=== PATIENT | male | born 1940 | race Caucasian/White ===

== ENCOUNTER 2018-03-28 16:25 | Inpatient (IN) | payer MEDICARE, OTHER ==
[~2018-03-28] VITALS: Ht 185.4 cm; Wt 122.5 kg
[2018-03-28 18:45] LABS: BASOPHILS % 0.5 % (0.0-1.0); EOSINOPHILS # (AUTO) 0.1 (0.0-0.4); EOSINOPHILS % 1.2 % (0.0-6.0); HEMATOCRIT 45.7 % (38.2-49.6); HEMOGLOBIN 13.1 g/dL (14.0-18.0); LYMPHOCYTES # (AUTO) 0.8 (1.0-3.2); LYMPHOCYTES % 10.2 % (18.0-39.1); MEAN CORPUSCULAR HGB CONC 28.7 g/dL (31-35); MEAN CORPUSCULAR VOLUME 69.9 fL (81-99); MONOCYTES # (AUTO) 0.6 (0.2-0.8); MONOCYTES % 8.3 % (4.4-11.3); NEUTROPHILS # (AUTO) 5.9 (2.1-6.9); NEUTROPHILS % 79.5 % (38.7-80.0); PLATELET COUNT 197 x10e3/uL (140-360); RED BLOOD COUNT 6.54 x10e6/uL (4.3-5.7); RED CELL DISTRIBUTION WIDTH 21.2 % (11.7-14.4)
[2018-03-28 18:50] LABS: INR 1.28; PROTHROMBIN TIME 17.1 seconds (11.9-14.5)
[2018-03-28 18:51] LABS: PARTIAL THROMBOPLASTIN TIME 38.9 seconds (23.8-35.5)
[2018-03-28 19:01] LABS: ALANINE AMINOTRANSFERASE 18 IU/L (0-55); ALBUMIN 3.6 g/dL (3.5-5.0); ALBUMIN/GLOBULIN RATIO 1.1 (0.8-2.0); ALKALINE PHOSPHATASE 53 IU/L (40-150); ANION GAP 14.5 mmol/L (8-16); BLOOD UREA NITROGEN 11 mg/dL (7-26); BUN/CREATININE RATIO 9 (6-25); CALCIUM 9.2 mg/dL (8.4-10.2); CARBON DIOXIDE 24 mmol/L (22-29); CHLORIDE 99 mmol/L (98-107); CREATININE, SERUM 1.25 mg/dL (0.72-1.25); EST GLOMERULAR FILTRATION RATE 56 ML/MIN (60-); GLUCOSE 104 mg/dL (74-118); MAGNESIUM 1.7 MG/DL (1.3-2.1); PHOSPHORUS 2.8 MG/DL (2.3-4.7); POTASSIUM 3.5 mmol/L (3.5-5.1); SODIUM 134 mmol/L (136-145)
[2018-03-28 19:20] LABS: THYROID STIMULATING HORMONE 3.072 uIU/mL (0.350-4.940)
--- NOTE | 2018-03-28 20:16 | Diagnostic Imaging Report ---
EXAMINATION: CHEST SINGLE (PORTABLE) INDICATION: ^Palpitations ^[id number] ^1850 COMPARISON: None FINDINGS: AP view TUBES and LINES: None. LUNGS: Lungs are well inflated. Bilateral interstitial edema. Bibasilar atelectasis. PLEURA: No pleural effusion or pneumothorax. HEART AND MEDIASTINUM: Moderate enlargement of the cardiac silhouette. BONES AND SOFT TISSUES: Median sternotomy wires. Few inferior broken wire without displacement. Soft tissues are unremarkable. UPPER ABDOMEN: No free air under the diaphragm. IMPRESSION: Cardiomegaly with associated bilateral interstitial edema and bibasilar atelectasis. Signed by: Dr. Deanna Cedeno M.D. on 03/28/2018 8:12 PM
[2018-03-28] MEDS ORDERED: FUROSEMIDE INJ 10 MG/ML 4 ML VIAL IV ONE (20:30)
[2018-03-28] MEDS ORDERED: POTASSIUM CHLORIDE 20 MEQ TAB CR PO ONE (20:30)
--- NOTE | 2018-03-28 22:08 | Diagnostic Imaging Report ---
EXAMINATION: Head CT HISTORY: Dizziness, bradycardia, palpitations COMPARISON: None. TECHNIQUE: Multidetector axial images were obtained without contrast from the foramen magnum to the vertex . The images were reconstructed using brain and bone algorithms. Thin section brain images were reformatted into coronal and sagittal planes. Image quality: Motion/streaking artifact limits the evaluation of the skull base and posterior cranial fossa. Dose modulation, iterative reconstruction, and/or weight based adjustment of the mA/kV was utilized to reduce the radiation dose to as low as reasonably achievable. FINDINGS: Parenchyma: 1. Gutter and mildly confluent periventricular white matter hypodensities, most likely nonspecific chronic microvascular ischemic changes. Small age indeterminate, likely chronic lacunar infarcts in the left) views and bilateral frontal deep white matter. 2. No mass or hemorrhage. No CT evidence of acute territorial vascular insult. Extra-axial spaces:No abnormal density. No extra-axial fluid collections Brain volume: Normal for age. Ventricles: No hydrocephalus or displacement. Arteries: No density suggestive of thrombus. Dural sinuses: No abnormal density. Extra-axial spaces: No abnormal density. Foramen magnum: No mass, Chiari malformation, or basilar invagination. Sella: No obvious mass. Paranasal/mastoid sinuses: Imaged portions unremarkable. Skull/Scalp: No lytic or blastic lesions. No fractures. IMPRESSION: 1. No acute intracranial hemorrhage or cortical infarct. 2. Mild chronic microvascular ischemic changes. Signed by: Dr. Anju Cook M.D. on 03/28/2018 10:04 PM
--- OUTSIDE RECORDS SUMMARY | 2018-03-28 22:48 | XMS REPORT ---
Author Author [facility] Address Unknown Phone Unavailable Care Team Providers Care Inside Sales Assistant Name Role Phone Espinoza BALDERRAMA Unavailable Unavailable Problems This patient has no known problems. Allergies, Adverse Reactions, Alerts This patient has no known allergies or adverse reactions. Medications This patient has no known medications. Results Test Description Test Time Test Comments Text Results Atomic Results Result Comments CT BRAIN WO 2018-03-28 22:02:00 [place] [address] Patient Name: BIRD SHERMAN MR #: [id number] : 1940 Age/Sex: 78/M Req #: [id number] Adm Physician: Ordered by: MAYLIN BALDERRAMA MD Report #: [id number] Location: ER Room/Bed: Procedure: [id number] CT/CT BRAIN WO Exam Date: 03/28/18 Exam Time: 2039 REPORT STATUS: Signed EXAMINATION: Head CT HISTORY: Dizziness, bradycardia, pa lpitations COMPARISON: None. TECHNIQUE: Multidetector axial images were obtained without contrast from the foramen magnum to the vertex . The images were reconstructed using brain and bone algorithms. Thin section brain images were reformatted into coronal and sagittal planes. Image quality: Motion/streaking artifact limits the evaluation of the skull base and posterior cranial fossa. Dose modulation, iterative reconstruction, and/or weight based adjustment of the mA/kV was utilized to reduce the radiation dose to as low as reasonably achievable. FINDINGS: Parenchyma: 1. Gutter and mildly confluent periventricular white matter hypodensities, most likely nonspecific chronic microvascular ischemic changes. Small age indeterminate, likely chronic lacunar infarcts in the left) views and bilateral frontal deep white matter. 2. No mass or hemorrhage. No CT evidence of acute territorial vascular insult. Extra-axial spaces:No abnormal de nsity. No extra-axial fluid collections Brain volume: Normal for age. Ventricles: No hydrocephalus or displacement. Arteries: No density suggestive of thrombus. Dural sinuses: No abnormal density. Extra-axial spaces: No abnormal density. Foramen magnum: No mass, Chiari malformation, or basilar invagination. Sella: No obvious mass. Paranasal/mastoid sinuses: Imaged portions unremarkable. Skull/Scalp: No lytic or blastic lesions. No fractures. IMPRESSION: 1. No acute intracranial hemorrhage or cortical infarct. 2. Mild chronic microvascular ischemic changes. Signed by: Dr. Radha Cook M.D. on 03/28/2018 10:04 PM Dictated By: RADHA COOK MD 03 Transcribed By: OZ on 03/28/182203 COPY TO: MAYLIN BALDERRAMA MD CHEST SINGLE (PORTABLE) 2018-03-28 20:12:00 [place] [address] Patient Name: BIRD SHERMAN MR #: [id number] : 1940 Age/Sex: 78/M Req #: [id number] Adm Physician: Ordered by: MONICA LOMELI MD Report #: [id number] Location: ER Room/Bed: Procedure: [id number] DX/CHEST SINGLE (PORTABLE) Exam Date: 03/28/18 Exam Time: 1849 REPORT STATUS: Signed EXAMINATION: CHEST SINGLE (PORTABLE) I NDICATION: Palpitations [id number] COMPARISON: None FINDINGS: AP view TUBES and LINES: None. LUNGS: Lungs are well inflated. Bilateral interstitial edema. Bibasilar atelectasis. PLEURA: No pleural effusion or pneumothorax. HEART AND MEDIASTINUM: Moderate enlargement of the cardiac silhouette. BONES AND SOFT TISSUES: Median sternotomy wires. Few inferior broken wire without displacement. Soft tissues are unremarkable. UPPER ABDOMEN: No free air under the diaphragm. IMPRESSION: Cardiomegaly with associated bilateral interstitial edema and bibasilar atelectasis. Signed by: Dr. Sina Wisdom M.D. on 03/28/2018 8:12 PM Dictated By: SINA WISDOM MD 11 Transcribed By: OZ on 03/28/182011 COPY TO: MONICA LOMELI MD
[2018-03-28] MEDS ORDERED: COMBIVENT RESPIM4 GM INH (23:01)
[2018-03-28] MEDS ORDERED: IMODIUM2 MG PO (23:01)
[2018-03-28] MEDS ORDERED: PROAIR HFA INH8.5 GM IH (23:01)
[2018-03-28] MEDS ORDERED: XARELTO20 MG PO (23:01)
[2018-03-28] MEDS ORDERED: FUROSEMIDE40 MG PO (23:01)
[2018-03-28] MEDS ORDERED: CLOTRIMAZOLE-BE30 ML TP (23:01)
[2018-03-28] MEDS ORDERED: LANSOPRAZOLE30 MG PO (23:01)
[2018-03-29] VITALS (16 sets, daily range): BP systolic 100–129; BP diastolic 56–74
--- NOTE | 2018-03-29 | NUR ---
PT AWAKE ALERT SKIN W/D RESP NONLAB NAD NOTED. EXPLAINED NPO STATUS, VERBALIZED UNDERSTANDING.
--- NOTE | 2018-03-29 02:05 | NUR ---
PT AWAKE ALERT SKIN W/D RESP NONLAB. NAD NOTED. AMBULATED TO RESTROOM WITHOUT APPARENT DIFFICULTY. SECOND SET OF CE COLLECTED AND SENT TO LAB
[2018-03-29 02:41] LABS: CREATINE KINASE 41 IU/L (30-200)
[2018-03-29 05:17] LABS: BASOPHILS # (AUTO) 0.1 (0.0-0.1); BASOPHILS % 0.6 % (0.0-1.0); EOSINOPHILS # (AUTO) 0.1 (0.0-0.4); EOSINOPHILS % 0.9 % (0.0-6.0); HEMATOCRIT 46.8 % (38.2-49.6); HEMOGLOBIN 13.4 g/dL (14.0-18.0); LYMPHOCYTES % 11.6 % (18.0-39.1); MEAN CORPUSCULAR HGB CONC 28.6 g/dL (31-35); MEAN CORPUSCULAR VOLUME 69.9 fL (81-99); MONOCYTES # (AUTO) 0.6 (0.2-0.8); MONOCYTES % 7.2 % (4.4-11.3); NEUTROPHILS % 79.2 % (38.7-80.0); PLATELET COUNT 218 x10e3/uL (140-360); RED CELL DISTRIBUTION WIDTH 21.4 % (11.7-14.4)
[2018-03-29 05:47] LABS: ALBUMIN 3.6 g/dL (3.5-5.0); ALBUMIN/GLOBULIN RATIO 1.1 (0.8-2.0); ANION GAP 16.1 mmol/L (8-16); CALCIUM 9.4 mg/dL (8.4-10.2); CHOL/HDL RATIO 3.1 (3.9-4.7); CREATININE, SERUM 1.27 mg/dL (0.72-1.25); MAGNESIUM 1.8 MG/DL (1.3-2.1); POTASSIUM 4.1 mmol/L (3.5-5.1)
[2018-03-29 06:01] LABS: LYMPHOCYTES % (MANUAL) 9 % (19-48); MONOCYTES % (MANUAL) 13 % (3.4-9.0); NEUTROPHILS % (MANUAL) 78 % (40-74)
[2018-03-29 06:02] LABS: ANISOCYTOSIS S; HYPOCHROMASIA MODERATE; PLATELET ESTIMATE ADEQUATE; PLATELET MORPHOLOGY COMMENT NORMAL; POIKILOCYTOSIS S; RBC MORPHOLOGY COMMENT ABNORMAL
--- NOTE | 2018-03-29 07:11 | NUR ---
RECEIVED REPORT FROM GAYLA [employer] SPECIALISTPSYCHOLOGY CLINICIAN NURSE.
--- NOTE | 2018-03-29 07:41 | NUR ---
DR. FONTANA HERE TO [facility] PT. PT AWARE ROOM ASSIGNMENT STILL PENDING AT THIS TIME.
[2018-03-29] MEDS ORDERED: IPRATROPIUM/ALBUTEROL SULFATE 4 GM INH INH SCH (07:45)
[2018-03-29] MEDS ORDERED: ALBUTEROL SULFATE HFA 8GM INHALATION AEROSOL INH SCH (07:45)
--- NOTE | 2018-03-29 07:45 | NUR ---
PT SITTING UP ON SIDE OF BED IN CHAIR. DENIES DIZZINESS OR CHEST PAIN AT THIS TIME. PT AWARE TO REMAIN NPO FOR POSSIBLE PACEMAKER INSERTION.
--- NOTE | 2018-03-29 08:20 | NUR ---
EKG DONE ORDERED BY DR. FONTANA.
--- NOTE | 2018-03-29 08:26 | NUR ---
CALL PLACED TO DR. MOORE'S OFFICE TO NOTIFY ABOUT CONSULT. OFFICE PHONE JUST RANG, NO ANSWER. WILL CALL BACK AFTER 0900.
[2018-03-29] MEDS ORDERED: NON-FORMULARY MEDICATION (Lansoprazole 30 MG) PO SCH (09:00)
[2018-03-29] MEDS: RIVAROXABAN 20 MG TABLET PO SCH (09:00)
[2018-03-29] MEDS: FUROSEMIDE 40 MG TAB PO SCH (09:00)
--- NOTE | 2018-03-29 09:25 | NUR ---
CALL PLACED TO DR. MCFADDEN'S OFFICE REGARDING PT'S CONCERN ABOUT NOT BEING ON SCHELDULE FOR POSSIBLE PACEMAKER INSERTION. PENDING RETURN CALL AT THIS TIME.
--- NOTE | 2018-03-29 09:30 | NUR ---
CALL PLACED TO DR. MOORE'S OFFICE. SPOKE TO ARSH TO INFORM OF CONSULT. PENDING RETURN CALL AT THIS TIME.
[2018-03-29] MEDS ORDERED: HEPARIN SOD/SOD CHLORIDE 2,000 ML ONE (09:37)
[2018-03-29] MEDS ORDERED: IOPAMIDOL 370 MG/ML 200 ML INFUS..BTL INJ ONE (09:38)
[2018-03-29] MEDS ORDERED: LIDOCAINE HCL 2% LOCAL 20 ML VIAL ONE ×3 (09:38→15:26)
--- NOTE | 2018-03-29 09:49 | NUR ---
JERICA FROM [facility] HERE TO TRANSPORT PT FOR ANGIOGRAM. REPORT GIVEN TO BASIA PIZANO. PT TO GO TO A ROOM AFTERWARDS AND IS AWARE OF THIS.
--- NOTE | 2018-03-29 10:00 | NUR ---
DR. MOORE HERE TO [facility].
[2018-03-29] MEDS ORDERED: SODIUM CHLORIDE 0.9% 1000ML 1,000 ML ONE ×2 (10:11→14:50)
[2018-03-29] MEDS ORDERED: MIDAZOLAM HCL 2 MG/2 ML VIAL ONE ×2 (10:11→14:49)
[2018-03-29] MEDS ORDERED: FENTANYL CITRATE/PF 100MCG/2 ML INJ ONE ×2 (10:11→14:49)
[2018-03-29 10:13] LABS: CREATINE KINASE 41 IU/L (30-200)
--- NOTE | 2018-03-29 10:42 | Consultation ---
DATE OF CONSULTATION: CARDIOLOGY CONSULTATION REASON FOR CONSULTATION: Abnormal stress test, chest pain, symptomatic bradycardia. 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 Patient was found to have heart rates in the 30s with symptoms of lightheadedness, dizziness and fatigue. A stress test was performed due to shortness of breath and chest discomfort, which showed inferior ischemia. He is currently feeling well at rest. Denies any ongoing chest pain, shortness of breath; however, still reports palpitations. REVIEW OF SYSTEMS: A 12-point review of systems was conducted, is negative otherwise as above in the HPI. PAST MEDICAL HISTORY: As stated above in the HPI. PAST SURGICAL HISTORY: Coronary artery bypass graft surgery, mitral valve replacement. PAST FAMILY HISTORY: No premature coronary artery disease or sudden cardiac . SOCIAL HISTORY: No current illicit drug use, alcohol use, tobacco use. ALLERGIES: PENICILLIN. MEDICATIONS: See medication reconciliation form. PHYSICAL EXAMINATION VITAL SIGNS: Temperature is 98.2, heart rate is 68, respirations are 18, blood pressure is 114/52, oxygen saturation is 96% on 3 liters nasal cannula. GENERALLY: He is an elderly man seated at bedside, comfortable, with no apparent distress. Alert and oriented x3. HEAD: Normocephalic, atraumatic. EYES: The extraocular muscles are intact. Conjunctiva is clear. NECK: No JVD, no bruits. CARDIOVASCULAR: He is regular rate and rhythm with ectopy, mild systolic murmur heard best at the left upper sternal border. LUNGS: Diminished breath sounds in bilateral bases. ABDOMEN: Soft, nontender, nondistended. EXTREMITIES: No edema. VASCULAR: Diminished pulses. SKIN: Warm, dry, intact. Echocardiogram from March 23, 2018, showed a left ventricular ejection fraction of 55% to 60% with a normal functioning bioprosthetic valve in the mitral position. Nuclear stress test showed mild inferior ischemia with a calculated left ventricular ejection fraction of 38%. Laboratory reviewed. Hemoglobin 13.4. Creatinine 1.27. Normal troponins. BNP is 168. Chest x-ray shows cardiomegaly with mild interstitial edema. CT of the head shows no acute intracranial hemorrhage or cortical infarct, mild microvascular ischemic changes. IMPRESSION 1. Coronary artery disease status post coronary artery bypass graft surgery. 2. Abnormal stress test showing inferior ischemia. 3. Symptomatic bradycardia. 4. Premature ventricular complexes. 5. Lightheadedness and dizziness. 6. Hypertension. 7. Hyperlipidemia. RECOMMENDATIONS: Patient presented with symptomatic bradycardia with premature ventricular complexes and had a stress test showing inferior ischemia. Will proceed with left heart catheterization today to evaluate his grafts and [place] coronary arteries with possible intervention. Continue all other current cardiovascular medications. Patient likely will require pacemaker implantation due to symptomatic bradycardia. Will consult Dr. Peterson with electrophysiology. Further recommendations to follow. Job#: [id number] EV
--- NOTE | 2018-03-29 12:53 | History and Physical ---
CHIEF COMPLAINT: Dizziness, low heart beat, shortness of breath, weakness. HPI: This is a 78-year-old male with a past medical history of atrial fibrillation with slow ventricular response, hypertension, GERD, COPD, hyperlipidemia. He was in his usual state of health until the patient was seen by [facility] taper last week who tried to put the patient as outpatient pacemaker and cardiac cath, but the patient developed some shortness of breath and dizziness. He came to the ER last night. Afebrile. No shortness of breath. No chest pain. No backache. No burning urination. No diarrhea. No constipation. No seizures. No focal weakness. No leg pain. No leg swelling. PAST MEDICAL HISTORY 1. Hypertension. 2. Hyperlipidemia. 3. Valvular heart disease. 4. Atrial fibrillation. PAST SURGICAL HISTORY 1. History of mitral valve repair. 2. Hernia surgery. 3. History of node in neck removed. ALLERGIES: PENICILLIN. HABITS: Denies smoking. Denies alcohol. Denies illicit drug use. SOCIAL HISTORY: The patient is and lives with his . MEDICATION LIST: Attached. REVIEW OF SYSTEMS GENERAL: Swelling and weakness. HEENT: No diplopia. No blurring of vision. CARDIOPULMONARY: No chest pain. No shortness of breath. No cough. ALIMENTARY SYSTEM: No nausea or vomiting. MUSCULOSKELETAL: Has some joint pain. CENTRAL NERVOUS SYSTEM: No focal weakness. PHYSICAL EXAMINATION GENERAL: This is a 78-year-old male who is alert and oriented times 3, in no gross distress. VITAL SIGNS: Temperature 98.2, pulse 48, respiratory rate 18, blood pressure 126/59. HEENT: Head is atraumatic and normocephalic. Pupils bilaterally equally reactive to light. The extraocular muscles intact. Tongue is dry. Conjunctivae and sclerae are normal. NECK: Supple. No JVD. No carotid bruit. SKIN: Dry. LUNGS: Clear to auscultation bilaterally. No added sound. HEART: S1 and S2, regular rate and rhythm. No S3, S4 or murmur. ABDOMEN: Soft. Nontender. No guarding. No rigidity. EXTREMITIES: No pedal edema. No clubbing. No cyanosis. OPERATIONS SUPERVISOR 2ND SHIFT: Grossly nonfocal. CT OF THE HEAD: No new stroke. CHEST X-RAY: Cardiomegaly with associated bilateral interstitial edema. LABS: White count 7.43, hemoglobin 13.1, hematocrit 45.7, platelets 197. Sodium 134, potassium 3.5, BUN and creatinine normal at 1.25, albumin 3.6. BNP 160. ASSESSMENT 1. Weakness and dizziness from bradycardia, rule out coronary artery disease. 2. Atrial fibrillation. 3. Hypertension. 4. Chronic obstructive pulmonary disease. 5. History of mitral valve replacement. PLAN: Refer patient for cardiology consult with Dr. Rodriguez. BMP in the morning. Continue to monitor in the hospital. Lasix 20 daily. Case discussed with the patient. Told condition and prognosis. Job#: [id number]
[2018-03-29] MEDS ORDERED: BACITRACIN 50,000 UNIT VIAL ONE (14:50)
[2018-03-29] MEDS ORDERED: SODIUM CHLORIDE 0.9% 500ML 500 ML ONE (14:50)
[2018-03-29] MEDS ORDERED: VANCOMYCIN 1GM/NS 250 ML 250 ML ONE (15:26)
--- NOTE | 2018-03-29 16:45 | NUR ---
RECD PT FROM TOBY MAKER VIA BED AAOX3,SLING TO LT ARM DRESG TO LT U CHEST CD&I,IV INFUSING TO LT AC PATENT IVF INFUSING,DENIES PAIN .
--- NOTE | 2018-03-29 16:55 | NUR ---
TELE APPLIED SR DEMAND PACE,AT 68
--- NOTE | 2018-03-29 16:55 | NUR ---
O2 2LNC APPLIED O2 SATS 89 % RA
--- NOTE | 2018-03-29 19:06 | NUR ---
Patient visited in room during nursing rounds. Patient alert and oriented x3. Ambulatory with standby assist prn. Patient s/p left heart cath and permanent pacemaker placement via left upper chest. Dressing on left upper chest clean, dry and intact. Right groin dressing clean and dry. Sling being worn on left arm. at bedside. Patient denies any discomfort or pain. Will monitor patient closely.
[2018-03-30] VITALS: BP 119/58
[2018-03-30 04:00] VITALS: BP 122/56
[2018-03-30 06:04] LABS: ANION GAP 13.2 mmol/L (8-16); BLOOD UREA NITROGEN 15 mg/dL (7-26); BUN/CREATININE RATIO 14 (6-25); CARBON DIOXIDE 23 mmol/L (22-29); CHLORIDE 100 mmol/L (98-107); EST GLOMERULAR FILTRATION RATE > 60 ML/MIN (60-); GLUCOSE 86 mg/dL (74-118); POTASSIUM 4.2 mmol/L (3.5-5.1); SODIUM 132 mmol/L (136-145)
[2018-03-30] MEDS ORDERED: PANTOPRAZOLE SOD 40 MG TABEC PO SCH ×2 (07:30)
[2018-03-30 08:42] VITALS: BP 122/56
[2018-03-30] MEDS: RIVAROXABAN 20 MG TABLET PO SCH (08:42)
[2018-03-30] MEDS: FUROSEMIDE 40 MG TAB PO SCH (08:42)
--- NOTE | 2018-03-30 08:42 | NUR ---
Pt received resting in bed. S/p PPM insertion and [facility] Pt with left arm sling. Oriented to staff and surroundings. Encouraged to press call boo if help needed. Pt oriented to staff and surroundings. Advised to press call boo if help needed. Meds given as ordered. [place]rem[place]ne boo within reach. Will monitor
[2018-03-30 09:00] VITALS: BP 126/57
[2018-03-30 11:54] VITALS: BP 115/55
--- NOTE | 2018-03-30 13:20 | NUR ---
Pt & given discharge instructions regarding meds, diet, activities, and follow up appointment with PCP and cardiology. Both verbalized understanding of teaching. Left floor in wheelchair to 's car
--- NOTE | 2018-03-30 15:50 | Operative Report ---
DATE OF PROCEDURE: March 29, 2018 PROCEDURES PERFORMED 1. Selective coronary angiography x2. 2. Left heart catheterization. 3. Left graft angiography. PREPROCEDURE DIAGNOSIS: Abnormal stress test with a history of coronary artery disease status post coronary artery bypass graft surgery. ESTIMATED BLOOD LOSS: Less than 20 mL. SPECIMENS REMOVED: None. PROCEDURE DETAILS: After informed consent was obtained, the patient was brought to the cardiac catheterization laboratory in a fasting and nonsedated state. Bilateral groins were prepped and draped in the usual sterile fashion. Lidocaine 2% was infiltrated over the right anterior groin for local anesthesia. Using a micropuncture needle, the right common femoral artery was accessed using modified Seldinger technique, and a 5-Slovak sheath was placed. Next, diagnostic coronary angiography was performed using a JL-4 and a JR-4 catheter. This same catheter was used to selectively engage the vein graft, and diagnostic imaging was performed. Next, this also was used to selectively engage the left internal mammary artery. Next, left heart catheterization was performed using a modified angled pigtail catheter. Hemostasis was achieved via a Mynx device. The patient tolerated the procedure well with no immediate complications and was transported back to his room in stable condition. PROCEDURAL FINDINGS 1. Left main coronary artery is patent without significant coronary artery disease. 2. The left anterior descending coronary artery has a mild proximal to mid 30% stenosis. 3. The left circumflex coronary artery provides 2 obtuse marginal vessels, the first of which has a long tubular proximal 50% stenosis. 4. The right coronary artery is a large dominant vessel and provides the posterior descending coronary artery. There is mild nonobstructive coronary artery disease present in this coronary system. 5. There is a patent saphenous vein graft anastomosed to the 1st obtuse marginal vessel, which is patent. 6. The left internal mammary artery is not anastomosed to any coronary artery and is in its tolowa dee-ni' position. 7. The left ventricular end-diastolic pressure is 13 mmHg with no aortic valve gradient present upon pullback. RECOMMENDATIONS: Continue medical management. Job#: [id number] EV
--- NOTE | 2018-04-01 12:09 | Consultation ---
DATE OF CONSULTATION: March 29, 2018 REFERRING PHYSICIAN: Dr. Rodriguez. REASON FOR CONSULT: Symptomatic bradycardia. HISTORY OF PRESENT ILLNESS: This is a 78-year-old gentleman with history of hypertension, history of PVCs, who has been having dizziness and weakness, he has had an event monitor, demonstrated frequent episodes of bradycardia; however, dropping to the 40s. He also had frequent PVCs that worsened with bradycardia despite holding the beta blockers. He was advised to present to the ER and is evaluated for a pacemaker. REVIEW OF SYSTEMS CONSTITUTIONAL: As per HPI, otherwise negative. CARDIOVASCULAR: As per HPI. RESPIRATORY: Negative. GASTROINTESTINAL: Negative. GENITOURINARY: Negative. MUSCULOSKELETAL: Negative. EYES: Negative. ENT: Negative. ALLERGY/IMMUNOLOGY: Negative. PSYCHIATRY: Negative. PAST MEDICAL HISTORY: Hypertension. PAST SURGICAL HISTORY: Negative. FAMILY HISTORY: No premature coronary artery disease. SOCIAL HISTORY: Denies smoking or alcohol. PHYSICAL EXAMINATION VITAL SIGNS: Blood pressure 120/60, pulse 60, respirations 20, and O2 sat is 98%. GENERAL: In no acute distress. HEENT: Moist mucous membranes. CARDIOVASCULAR: Regular. RESPIRATORY: Clear. ABDOMEN: Soft, nontender. MUSCULOSKELETAL: 2+ distal pulses. NEUROLOGICAL: No focal deficit. SKIN: No lesions. PSYCHIATRY: Normal thought process. EKG: Sinus bradycardia, frequent PVCs. IMPRESSION 1. Symptomatic bradycardia with sinus node dysfunction, dizziness, and weakness. 2. Frequent monomorphic premature ventricular contractions. RECOMMENDATIONS: I had a discussion with the patient. He has indication for pacing. Procedure was explained in detail, benefits and risks. Patient voiced understanding and wishes to proceed. Plan for a dural-chamber pacemaker placement. Patient may need ablation of his PVCs if they continue to be refractory in the near future. Thank you for letting us participate in Mr. Morin's [facility] care. Job#: [id number] ANDREW
--- NOTE | 2018-04-01 13:44 | Operative Report ---
DATE OF PROCEDURE: March 29, 2018 PREPROCEDURE DIAGNOSES 1. Symptomatic bradycardia. 2. Sinus node dysfunction. 3. Dizziness. POSTPROCEDURE DIAGNOSES 1. Symptomatic bradycardia. 2. Sinus node dysfunction. 3. Dizziness. ESTIMATED BLOOD LOSS: 5 mL. COMPLICATIONS: None. PROCEDURES PERFORMED 1. Dual-chamber pacemaker placement. 2. Moderate sedation. Moderate conscious sedation was provided under my direct supervision by a sedation-trained nurse. Sedation approximate time 30 minutes, Versed and fentanyl. There were no complications. See sedation form for details. DESCRIPTION OF PROCEDURE: After informed consent was obtained, the patient was brought to the electrophysiology laboratory in a fasting, nonsedated state. Area over his chest was prepped and draped in the usual sterile fashion. Moderate sedation and prophylactic antibiotic were given. Lidocaine 1% was used as local anesthetic and a 3-cm skin incision was made in the left subclavicular area. Electrocautery, sharp and blunt dissection were used to reach the muscular fascia and a pocket was created for eventual implantation of the device. Vascular access was obtained x2 in the left axillary vein. Using the modified Seldinger technique under fluoroscopic guidance, two 6-[place] sheaths were placed in the ventricular lead and advanced to the RV apex. R-wave 18, pacing 0.4 at 0.5, impedance 800. The atrial lead to the right atrial appendage. P-wave 4, pacing 0.6 at 0.5, impedance 700. Sheaths were removed from the body. Leads were secured to fascia using 0 silk. Pocket was irrigated with antibiotic solution using the pulse cellar worker. Hemostasis was meticulous. Leads were connected to the device and entire pacemaker system placed in the pocket. Incision was closed using Vicryl and Dermabond. The patient tolerated the procedure well. The procedure was deemed complete. SUMMARY OF HARDWARE IMPLANTED 1. The new pacemaker is [employer] model #L311, [id number]. 2. The atrial lead is [employer] 7741, [id number]. 3. The ventricular lead is [employer] 7742, [id number]. IMPRESSION: Successful dual-chamber pacemaker implant via left axillary vein. PLAN 1. Routine postop monitoring on telemetry bed. 2. Chest x-ray. 3. Follow up in 2 weeks. Job#: [id number] PEPE
== END 2018-03-30 13:16 | disposition home or self-care (01) | DRG 243 ==
LOC: ER 16:25 → ERHOLD 22:45 → MED/SURG3 03-29 16:41
PROVIDERS: ADMIT Internal Medicine; ATTEND Internal Medicine
PROC: 0JH606Z Insertion of Pacemaker, Dual Chamber into Chest Subcutaneous Tissue and Fascia, Open Approach (ICD-10-PCS; principal; 2018-03-28)
PROC: 02H63JZ Insertion of Pacemaker Lead into Right Atrium, Percutaneous Approach (ICD-10-PCS; 2018-03-28)
PROC: 02HK3JZ Insertion of Pacemaker Lead into Right Ventricle, Percutaneous Approach (ICD-10-PCS; 2018-03-28)
PROC: 4A023N7 Measurement of Cardiac Sampling and Pressure, Left Heart, Percutaneous Approach (ICD-10-PCS; 2018-03-30)
PROC: B2111ZZ Fluoroscopy of Multiple Coronary Arteries using Low Osmolar Contrast (ICD-10-PCS; 2018-03-30)
PROC: B2131ZZ Fluoroscopy of Multiple Coronary Artery Bypass Grafts using Low Osmolar Contrast (ICD-10-PCS; 2018-03-30)
PROC: B2181ZZ Fluoroscopy of Left Internal Mammary Bypass Graft using Low Osmolar Contrast (ICD-10-PCS; 2018-03-30)
DX: I49.5 Sick sinus syndrome (principal); I25.810 Atherosclerosis of coronary artery bypass graft(s) without angina pectoris; I38 Endocarditis, valve unspecified; I48.2 Chronic atrial fibrillation; Z79.01 Long term (current) use of anticoagulants; I49.1 Atrial premature depolarization; I44.0 Atrioventricular block, first degree; I49.40 Unspecified premature depolarization; Z95.1 Presence of aortocoronary bypass graft; E78.5 Hyperlipidemia, unspecified; K21.9 Gastro-esophageal reflux disease without esophagitis; I10 Essential (primary) hypertension; I51.7 Cardiomegaly; I11.0 Hypertensive heart disease with heart failure; I50.9 Heart failure, unspecified
CPT/HCPCS: 33208; 36415; 70450; 71045; 80048; 80053; 80061; 82550; 82553; 83735; 83880; 84100; 84443; 84484; 85025; 85610; 85730; 93005; 93459; 99284; C1769; C1785; C1898; J1940; J2001; J2250; J3370; J7030; J7040; Q9967

== ENCOUNTER 2018-05-19 00:56 | Inpatient (IN) | payer MEDICARE, OTHER ==
[~2018-05-19] VITALS: Ht 185.4 cm; Wt 117.9 kg
[~2018-05-19 00:56] MED LIST: CLOTRIMAZOLE-BE30 ML TOP; COMBIVENT RESPIM4 GM INH; FUROSEMIDE40 MG PO; IMODIUM2 MG PO; LANSOPRAZOLE30 MG PO; PROAIR HFA INH8.5 GM INH; XARELTO20 MG PO
--- OUTSIDE RECORDS SUMMARY | 2018-05-19 00:59 | XMS REPORT | Summary of Care ---
Author Author [facility] Organization [facility] Address Unknown Phone Unavailable Encounter HQ Encntr_alias(FIN) [id number] Date(s): 10/01/17 - 10/01/17 [facility] [address] [place] [address]- Discharge Disposition: Home or Self Care Attending Physician: Corbin Thomas MD Referring Physician: Corbin Thomas MD Vital Signs No data available for this section Problem List No data available for this section Allergies, Adverse Reactions, Alerts No data available for this section Medications No data available for this section Results No data available for this section Immunizations No data available for this section Procedures No data available for this section Social History No data available for this section Assessment and Plan No data available for this section
--- OUTSIDE RECORDS SUMMARY | 2018-05-19 00:59 | XMS REPORT | Continuity of Care Document ---
Author Author [facility] Interface Address Unknown Phone Unavailable Problems Problem Status Onset Date Classification Date Reported Comments Source DX: J98.4=OTHER DISORDERS OF LUNG Active 04/19/2018 [facility] FIRST NIGHT 23670 Active 11/24/2017 [facility] C34.31 Active 09/22/2017 [facility] Bigeminy Active Problem 03/30/2018 [facility] CHF Active Problem 03/30/2018 [facility] MALIGNANT NEOPLASM OF LOWER LOBE, RIGHT Active [facility] OBSTRUCTIVE SLEEP APNEA (ADULT) (PEDIATR Active [facility] OTHER DISORDERS OF LUNG Active [facility] Medications Medication Details Route Status Patient Instructions Ordering Provider Order Date Source Albuterol Sulfate (Proair Hfa Inhaler*) 8.5 Gm Inh Use As Directed Active [facility] Clotrimazole/Betamethasone Dip (Clotrimazole-Betamethasone Lot) 30 Ml Lotion Active [facility] Furosemide 40 Mg Tablet Daily Active [facility] Ipratropium/Albuterol Sulfate (Combivent Respimat Inhal Melrose) 4 Gm Aer.w.adap Use As Directed [facility] Lansoprazole 30 Mg Capsule.dr Daily Active [facility] Loperamide Hcl (Imodium*) 2 Mg Cap As Needed Active [facility] Rivaroxaban (Xarelto) 20 Mg Tablet Daily Active [facility] Allergies, Adverse Reactions, Alerts Substance Category Reaction Severity Reaction type Status Date Reported Comments Source Penicillin HIVES Unknown Allergy to Substance Active 03/28/2018 [facility] Immunizations Immunization Date Given Site Status Last Updated Comments Source Results Order Name Results Value Reference Range Date Interpretation Comments Source Chest wo contrast CT Chest wo contrast CT EXAM: CT chest without IV contrast INDICATION: Follow-up spot on lung, lung nodule COMPARISON: 10/01/2017 PET/CT Technique: Axial CT images through the chest were obtained without IV contrast. Coronal and sagittal reformats were obtained. CT imaging performed at this location utilizes radiation dose optimization techniques which include one or more of the following: -Automated exposure control -Adjustment of the mA and/or kV according to patient size -Use of iterative reconstruction technique CT Radiation Dose DLP 556 mGy-cm FINDINGS: 1.3 cm right perifissural pulmonary opacity was not confidently identified on prior study and likely represents focal nodular atelectasis. No other pulmonary nodules identified. Multiple calcified pleural base nodules are present in the left posterior hemithorax. There is also noncalcified pleural nodularity in the lateral right hemithorax. No consolidation, pneumothorax, or pleural effusion identified. No endobronchial abnormalities evident. Centrilobular and emphysematous changes predominate in the lung apices. No threshold enlarged hilar, mediastinal, or axillary lymph nodes identified. No cardiomegaly or pericardial effusion. Main pulmonary artery and thoracic aorta are normal in caliber. Atherosclerotic calcifications course along the coronary arteries. Gallstones lie posteriorly within the gallbladder. Visualized upper abdominal organs reveal no acute abnormalities otherwise. No suspicious lytic or blastic osseous lesions are evident. IMPRESSION: Right perifissural nodule is new compared to prior study and likely represents nodular atelectasis. No new or enlarging pulmonary nodule identified. Multiple calcified pleural base nodules, most likely representing asbestos related lung disease. Moderate centrilobular and paraseptal emphysema predominating in the lung apices. Cholelithiasis. SL: [id number] 04/25/2018 - - Read by: Syd Esteves MD Dictated Date/time: 04/25/18 22:09 Electronically Signed by: Syd Esteves MD 04/25/18 22:17 FINAL REPORT [facility] Serum or plasma sodium measurement (moles/volume) 132 136 - 145 03/30/2018 [facility] Serum or plasma potassium measurement (moles/volume) 4.2 3.5 - 5.1 03/30/2018 [facility] Serum or plasma chloride measurement (moles/volume) 100 98 - 107 03/30/2018 [facility] Serum or plasma carbon dioxide, total measurement (moles/volume) 23 22 - 29 03/30/2018 [facility] Serum or plasma anion gap 13.2 8 - 16 03/30/2018 [facility] Serum or plasma urea nitrogen measurement (mass/volume) 15 7 - 26 03/30/2018 [facility] Serum or plasma creatinine measurement (mass/volume) 1.10 0.72 - 1.25 03/30/2018 [facility] Serum or plasma urea nitrogen/creatinine mass ratio 14 6 - 25 03/30/2018 [facility] Estimated glomerular filtration rate (GFR) determination > 60 60 03/30/2018 [facility] Glucose measurement 86 74 - 118 03/30/2018 [facility] Serum or plasma calcium measurement (mass/volume) 9.0 8.4 - 10.2 03/30/2018 [facility] Serum or plasma creatine kinase measurement (enzymatic activity/volume) 41 30 - 200 03/29/2018 [facility] Serum or plasma creatine kinase MB measurement (mass/volume) 1.30 0 - 5.0 03/29/2018 [facility] Troponin I measurement by highly sensitive enzyme immunoassay < 0.001 0 - 0.300 03/29/2018 [facility] Blood leukocytes automated count (number/volume) 8.83 4.8 - 10.8 03/29/2018 [facility] Blood erythrocytes automated count (number/volume) 6.70 4.3 - 5.7 03/29/2018 [facility] Blood hemoglobin measurement (moles/volume) 13.4 14.0 - 18.0 03/29/2018 [facility] Automated blood hematocrit (volume fraction) 46.8 38.2 - 49.6 03/29/2018 [facility] Automated erythrocyte mean corpuscular volume 69.9 81 - 99 03/29/2018 [facility] Automated erythrocyte mean corpuscular hemoglobin (mass per erythrocyte) 20.0 28 - 32 03/29/2018 [facility] Automated erythrocyte mean corpuscular hemoglobin concentration measurement (mass/volume) 28.6 31 - 35 03/29/2018 [facility] RDW BldCo-Rto 21.4 11.7 - 14.4 03/29/2018 [facility] Automated blood platelet count (count/volume) 218 140 - 360 03/29/2018 [facility] Automated blood segmented neutrophil count as percentage of total leukocytes 79.2 38.7 - 80.0 03/29/2018 [facility] Automated blood lymphocyte count as percentage ot total leukocytes 11.6 18.0 - 39.1 03/29/2018 [facility] Automated blood monocyte count as percentage of total leukocytes 7.2 4.4 - 11.3 03/29/2018 [facility] Automated blood eosinophil count as percentage of total leukocytes 0.9 0.0 - 6.0 03/29/2018 [facility] Automated blood basophil count as percentage of total leukocytes 0.6 0.0 - 1.0 03/29/2018 [facility] IM GRANULOCYTES % 0.5 0.0 - 1.0 03/29/2018 [facility] Automated blood neutrophil count 7.0 2.1 - 6.9 03/29/2018 [facility] Blood lymphocytes count (number/volume) 1.0 1.0 - 3.2 03/29/2018 [facility] Blood monocytes automated count (number/volume) 0.6 0.2 - 0.8 03/29/2018 [facility] Automated blood eosinophil count 0.1 0.0 - 0.4 03/29/2018 [facility] Automated blood basophil count (count/volume) 0.1 0.0 - 0.1 03/29/2018 [facility] Absolute Immature Granulocyte (auto 0.04 0 - 0.1 03/29/2018 [facility] Differential Total Cells Counted 100 03/29/2018 [facility] Manual blood neutrophils/100 leukocytes 78 40 - 74 03/29/2018 [facility] Manual blood lymphocytes/100 leukocytes 9 19 - 48 03/29/2018 [facility] Manual blood monocytes/100 leukocytes 13 3.4 - 9.0 03/29/2018 [facility] Blood platelets count by estimate (number/volume) ADEQUATE 03/29/2018 [facility] Platelet morphology NORMAL 03/29/2018 [facility] Blood hypochromia detection by light microscopy MODERATE 03/29/2018 [facility] Blood poikilocytosis detection by light microscopy S 03/29/2018 [facility] Blood anisocytosis detection by light microscopy S 03/29/2018 [facility] RBC morphology ABNORMAL 03/29/2018 [facility] Serum or plasma magnesium measurement (mass/volume) 1.8 1.3 - 2.1 03/29/2018 [facility] Serum or plasma total bilirubin measurement (mass/volume) 1.0 0.2 - 1.2 03/29/2018 [facility] Aspartate Amino Transf (AST/SGOT) 17 5 - 34 03/29/2018 [facility] Serum or plasma alanine aminotransferase measurement (enzymatic activity/volume) 19 0 - 55 03/29/2018 [facility] Serum or plasma protein measurement (mass/volume) 7.0 6.5 - 8.1 03/29/2018 [facility] Serum or plasma albumin measurement (mass/volume) 3.6 3.5 - 5.0 03/29/2018 [facility] Plasma globulin measurement (mass/volume) 3.4 2.3 - 3.5 03/29/2018 [facility] Serum or plasma albumin/globulin mass ratio 1.1 0.8 - 2.0 03/29/2018 [facility] Serum or plasma alkaline phosphatase measurement (enzymatic activity/volume) 55 40 - 150 03/29/2018 [facility] Serum or plasma triglyceride measurement (mass/volume) 122 0 - 149 03/29/2018 [facility] Serum or plasma cholesterol measurement (mass/volume) 123 0 - 199 03/29/2018 [facility] Serum or plasma cholesterol in LDL measurement (mass/volume) 59 60 - 130 03/29/2018 [facility] Serum or plasma cholesterol in HDL measurement (mass/volume) 40 40 - 60 03/29/2018 [facility] Serum or plasma total cholesterol/cholesterol in HDL mass ratio 3.1 3.9 - 4.7 03/29/2018 [facility] Prothrombin time (PT) in platelet poor plasma by coagulation assay 17.1 11.9 - 14.5 03/28/2018 [facility] INR in Platelet poor plasma by Coagulation assay 1.28 03/28/2018 [facility] Activated partial thromboplastin time (aPTT) in platelet poor plasma bycoagulation assay 38.9 23.8 - 35.5 03/28/2018 [facility] Phosphorus measurement 2.8 2.3 - 4.7 03/28/2018 [facility] BNP Bld-mCnc 168.0 0 - 100 03/28/2018 [facility] Serum or plasma thyrotropin measurement by detection limit <=0.005 miu/l (units/volume) 3.072 0.350 - 4.940 03/28/2018 [facility] PET CT Lung non-small cell diagnosis PET CT Lung non-small cell diagnosis PET CT Lung non-small cell diagnosis TECHNIQUE: 14.8 mCis of FDG were administered intravenously and a series of overlapping images were obtained from the skull base to the proximal thighs utilizing a PET/CT hybrid device. The CT was utilized for attenuation correction and anatomic correlation and not as an independent diagnostic study. BLOOD GLUCOSE: 95 mg/dl COMPARISON: Report from outside education dated 07/12/2017 is referenced. No images are available for direct comparison. CLINICAL HISTORY: C34.31 Malignant neoplasm of lower lobe, right bronchus or lung - KOL=773.01mGy*cm; CTDIVol=6.12 mGy; FINDINGS: HEAD AND NECK: No abnormal activity is visualized CHEST: Moderate to severe emphysema. Focal area of mild pleural-based nodularity is noted in the right middle lobe laterally. Maximum SUV is 1.8 on image 115. No discrete nodule is visualized in the left lower lobe. There is mild basilar atelectasis. Moderate cardiomegaly. Coronary artery calcifications. ABDOMEN AND PELVIS: Ventral abdominal hernia containing a small bowel loop in the right mid to lower abdomen near midline. This bowel loop is markedly dilated with a prominent air-fluid level and maximum caliber of 8 cm. Physiologic activity is visualized in the solid organs, genitourinary tract and gastrointestinal tract. MUSCULOSKELETAL: Midline sternotomy changes with mild increase in metabolic activity noted throughout the length of the sternum. Small nonspecific focus of mild increase in metabolic activity, left third rib anteriorly. IMPRESSION: Right paramedian ventral abdominal hernia with herniation of a small bowel loop. The intraperitoneal portion of this bowel loop is markedly dilated with a prominent air-fluid level. Possibility of incarceration should be excluded. Correlation with clinical symptoms and GI consultation is recommended. NOTE: Critical and/or salient findings telephoned to the referring physician, Dr. Thomas on 10/03/2017 11:39 AM CDT. Mild focal pleural-based nodularity in the right middle lobe region without significant increase in metabolic activity. No discrete nodule is visible in the left lower lobe on the current study. Repeat CT chest is recommended in 3 months. Small nonspecific focus of mild increase in metabolic activity, left third rib. Correlation with clinical exam and further evaluation may be obtained with bone scan as indicated. SL:[id number] 10/01/2017 - - Read by: Tye Smith MD Dictated Date/time: 10/03/17 11:03 Electronically Signed by: Tye Smith MD 10/03/17 11:45 FINAL REPORT [facility] Vital Signs Vital Sign Value Date Comments Source Encounters Location Location Details Encounter Type Encounter Number Reason For Visit Attending Provider ADM Date DC Date Status Source [facility] [id number] Corbin Thomas 10/01/2017 10/02/2017 [facility] Discharged Inpatient [id number] KEVIN FONTANA MD 03/28/2018 03/30/2018 [facility] Procedures Procedure Code Date Perfomer Comments Source Computed tomography of brain without radiopaque contrast [id number] 03/28/2018 [facility]
[2018-05-19] MEDS ORDERED: ONDANSETRON HCL INJ 2MG/ML 2ML 2 MG/ML VIAL IV STA (02:10)
[2018-05-19] MEDS ORDERED: DIATRIZOATE MEGL/DIATRIZOA SOD 30 ML BTL PO ONE (02:14)
--- NOTE | 2018-05-19 02:24 | Diagnostic Imaging Report ---
ABDOMEN 2 VIEW Clinical history: Abdominal pain Technique: AP view abdomen Comparison: None Findings: Severely limited by body habitus and motion artifact, for example on upright view limiting assessment for free air. Portions of the lateral abdomen excluded. Markedly distended loop of large bowel with air-fluid level. Multiple additional air-fluid levels. Clips overlie the pelvis. Partially imaged pacing leads and approximately L2 compression deformity. Impression: Abnormal bowel gas pattern. Findings suspicious for sigmoid volvulus. Recommend CT. Signed by: Dr Patti Mccullough MD on 05/19/2018 2:21 AM
[2018-05-19] MEDS ORDERED: HYDROMORPHONE 2MG/ML 2 MG/ML ML IV ONE (02:30)
[2018-05-19 02:35] LABS: BASOPHILS % 0.3 % (0.0-1.0); EOSINOPHILS % 0.2 % (0.0-6.0); HEMOGLOBIN 13.6 g/dL (14.0-18.0); LYMPHOCYTES # (AUTO) 0.5 (1.0-3.2); LYMPHOCYTES % 4.5 % (18.0-39.1); MEAN CORPUSCULAR HEMOGLOBIN 19.7 pg (28-32); MEAN CORPUSCULAR HGB CONC 30.2 g/dL (31-35); MEAN CORPUSCULAR VOLUME 65.1 fL (81-99); MONOCYTES # (AUTO) 0.6 (0.2-0.8); MONOCYTES % 5.9 % (4.4-11.3); NEUTROPHILS # (AUTO) 9.1 (2.1-6.9); NEUTROPHILS % 88.5 % (38.7-80.0); PLATELET COUNT 258 x10e3/uL (140-360); RED BLOOD COUNT 6.91 x10e6/uL (4.3-5.7); RED CELL DISTRIBUTION WIDTH 21.7 % (11.7-14.4)
[2018-05-19 02:49] LABS: ALBUMIN 3.8 g/dL (3.5-5.0); ALBUMIN/GLOBULIN RATIO 1.3 (0.8-2.0); AMYLASE 15 U/L (25-125); CALCIUM 9.4 mg/dL (8.4-10.2); CREATININE, SERUM 1.3 mg/dL (0.72-1.25); LIPASE 11 U/L (8-78)
[2018-05-19] MEDS ORDERED: SODIUM CHLORIDE 0.9% 50ML 50 ML ONE (02:53)
[2018-05-19] MEDS ORDERED: IOPAMIDOL 370 MG/ML 200 ML INFUS..BTL INJ ONE (02:53)
[2018-05-19] MEDS ORDERED: METHOCARBAMOL750 MG PO (03:58)
[2018-05-19] MEDS ORDERED: NAPROXEN375 MG PO (03:58)
[2018-05-19] MEDS ORDERED: CARVEDILOL3.125 MG PO (03:58)
[2018-05-19] MEDS ORDERED: PANTOPRAZOLE SO40 MG PO (03:59)
[2018-05-19] MEDS ORDERED: BENZOCAINE/TETRACAINE/BUTAMBEN AERO SPRAY 56 GM CAN TOP ONE (04:15)
--- NOTE | 2018-05-19 04:15 | NUR ---
16 FR NGT INSERTED TO R NARE PER ORDERS. PLACEMENT VERIFIED BY AUSCULTATION. CONNECTED TO LWS PER ORDERS. 800CC LIGHT BROWNISH COLRED LIQUID NOTED IN SUCTION CANISTER. INFORMED.
--- NOTE | 2018-05-19 04:18 | Diagnostic Imaging Report ---
EXAM: CT ABDOMEN/PELVIS W DATE: 05/19/2018 2:09 AM INDICATION: Abdominal pain COMPARISON: None TECHNIQUE: The abdomen and pelvis were scanned using a multidetector helical scanner. Coronal and sagittal reformations were obtained. CT low dose techniques were utilized, as applicable. IV Contrast: 100 ml Isovue 300/370 FINDINGS: LOWER THORAX: Bibasilar atelectasis. Scattered pleural calcifications/plaques.. Partially imaged pacing leads, coronary and aortic calcifications. LIVER/BILIARY: Several subcentimeter too small to characterize liver hypodensities.. No ductal dilatation. GALLBLADDER: Cholelithiasis. SPLEEN: Unremarkable PANCREAS: Unremarkable ADRENALS: Nodular bilateral adrenal glands KIDNEYS: Left renal cyst and several too small to characterize renal hypodensities. No hydronephrosis. GI TRACT: Small hiatal hernia with reflux of oral contrast. Postsurgical changes status post prior bowel resection with ileal anastomosis in the right lower quadrant. Distended stomach and small bowel loops with transition point at the site of an antimesenteric bowel wall (Perdomo's type) and fat containing right ventral/periumbilical hernia. The afferent loop is massively dilated up to 12.6 cm. Mild associated mesenteric edema. No pneumatosis. Diverticula of small bowel and colon. VESSELS: Moderate atherosclerotic changes PERITONEUM/RETROPERITONEUM: Multiple clips are noted. No free air. LYMPH NODES: No lymphadenopathy REPRODUCTIVE ORGANS/BLADDER: Unremarkable BONES: Mild L2 compression deformity. IMPRESSION: Small bowel obstruction with transition at a Perdomo's type bowel containing right ventral hernia. The afferent loop is massively dilated (12-13 cm) suggesting this may be acute on chronic. Signed by: Dr Patti Mccullough MD on 05/19/2018 4:14 AM
[2018-05-19] MEDS: SODIUM CHLORIDE 0.9% 1000ML 1,000 ML IV SCH ×3 (05:54→18:20)
[2018-05-19] MEDS: METRONIDAZOLE 500MG/NS 100ML 100 ML IV SCH ×4 (06:00→23:39)
[2018-05-19] MEDS ORDERED: ONDANSETRON HCL INJ 2MG/ML 2ML 2 MG/ML VIAL IV PRN (06:00)
[2018-05-19] MEDS: LEVOFLOXACIN 500MG/D5W 100ML IV SCH (06:28)
[2018-05-19 07:30] VITALS: BP 95/52
--- NOTE | 2018-05-19 07:33 | NUR ---
RECEIVED PATIENT TO UNIT AT 0640. PATIENT NGT CONNECTED TO WALL SUCTION. NPO. DENIES PAIN. SITTING IN RECLINER. NC. UPDATED ON PLAN OF CARE. REPORT GIVEN TO ONCOMING NURSE. PROVIDED PATIENT WITH GLYCERIN SWABS.
[2018-05-19 09:21] LABS: INR 0.99
[2018-05-19 09:22] LABS: PARTIAL THROMBOPLASTIN TIME 34.3 seconds (23.8-35.5)
--- NOTE | 2018-05-19 10:19 | Diagnostic Imaging Report ---
Examination: Single AP view of the chest. COMPARISON: None. INDICATION: Preoperative evaluation, bowel obstruction DISCUSSION: Lines/tubes: Enteric tube with the distal portion not visualized due to soft tissue attenuation/underpenetration. Sternotomy wires. Cardiac pacemaker. Lungs: Lower lung atelectasis. No focal pneumonia or edema. Pleura: No pleural effusion or pneumothorax. Heart and mediastinum: The heart and the mediastinum are unremarkable. Bones and soft tissues: No acute bony abnormalities. IMPRESSION: 1. No acute cardiopulmonary abnormalities. Signed by: Dr. Andrew Edwards M.D. on 05/19/2018 10:15 AM
--- NOTE | 2018-05-19 10:25 | History and Physical ---
CHIEF COMPLAINT: Constipation since last 4 to 5 days. HISTORY OF PRESENT ILLNESS: This 78-year-old, pleasant, white male with past medical history of multiple medical problems was admitted at [facility] last evening with the above complaints. As per the patient, since the last 4 to 5 days, the patient is unable to move bowels. Hence, the patient came to the ER last night. The patient had a CAT scan and x-ray. KUB done showed a small-bowel obstruction with ventral hernia. Hence, the patient was admitted for further care and treatment. At present, the patient is sitting comfortably in a chair in no apparent distress. No chest pain. No shortness of breath. No nausea or vomiting. No diarrhea. No abdominal pain. No loss of consciousness. No palpitations. No headaches. No hematemesis or melena. No hematuria or dysuria. No fever. No cough. No witnessed seizures. PAST MEDICAL HISTORY 1. Atrial fibrillation. 2. Status post mitral valve replacement with bioprosthetic valve in 2015. 3. Pacemaker placement 1 month back status post heart block. 4. COPD. 5. Hyperlipidemia. SURGICAL HISTORY 1. Mitral valve replacement, bioprosthetic valve, 2015. 2. Pacemaker placement, 04/06/2018. 3. Partial gastric removal surgery in 1998 for mass found to be benign. ALLERGIES: PENICILLIN. MEDICATIONS: As listed in the chart. SOCIAL HISTORY: No smoking. No alcohol. No illicit drug use. , lives with family. REVIEW OF SYSTEMS: As per HPI. PHYSICAL EXAMINATION GENERAL: The patient is alert, awake, oriented x3, in no apparent distress, sitting in chair. No cyanosis. No icterus. No pallor. VITALS: Temperature is 97. Pulse is 70 per minute. Respiratory rate is 18 per minute. Blood pressure is 114/70. Saturation is 95%. HEENT: Normocephalic, atraumatic. PERRLA. NECK: Soft, supple. No JVD, no carotid bruit, no lymphadenopathy. LUNGS: Air entry bilaterally equal. HEART: No murmur. No gallop. ABDOMEN: Soft. Distended. Ventral hernia plus. [employer] FOOD MANAGER: Alert and oriented x3. No focal deficit. EXTREMITIES: No cyanosis. No clubbing. No edema. Peripheral pulses present. No calf pain. LABS: Sodium 127, potassium 4.0, chloride 90, bicarb 26, BUN 16, creatinine 1.3, and glucose 128. LFTs noted. White count 10, hemoglobin 13.6, hematocrit 45, platelets 258. CAT scan of abdomen and pelvis shows a small-bowel obstruction with transition at Perdomo's type bowel containing a right ventral hernia. The afferent loop is massively dilated 12 to 13 cm suggesting this may be acute on chronic. ASSESSMENT 1. Small-bowel obstruction with ventral hernia. 2. History of atrial fibrillation, hypertension, dyslipidemia, status post pacemaker placement, chronic obstructive pulmonary disease. PLAN: Admit the patient to the medical floor. NPO. IV fluids. Surgical consultation with Dr. Abhay Estrada. Cardiology consultation with Dr. Rodriguez. Will get chest x-ray and EKG. Further care and treatment as per the clinical course of the patient in the hospital. Discussed with patient and family in detail. The prognosis and condition are guarded. Job#: [id number]
[2018-05-19 10:34] VITALS: BP 95/52
[2018-05-19] MEDS: SODIUM CHLORIDE 0.9% 250ML IRRIG IR SCH ×4 (11:15→21:15)
--- NOTE | 2018-05-19 11:15 | NUR ---
PLACEMENT VERIFIED WITH AIR, IRRIGATED NGT PER MD ORDER, PT CONTINUES TO SIT IN BS CHAIR, DENIES PAIN, CALL LIGHT WITHIN REACH
[2018-05-19 12:23] VITALS: BP 115/56
--- NOTE | 2018-05-19 14:16 | Consultation ---
DATE OF CONSULTATION: May 19, 2018 CARDIOLOGY CONSULTATION REASON FOR CONSULTATION: Preop evaluation. This is a 78-year-old man with a history of coronary artery disease, status post CABG, mitral valve disease, status post bioprosthetic mitral valve replacement, symptomatic bradycardia, status post permanent pacemaker, hypertension, hyperlipidemia, and COPD, who presented to the hospital with complaints of constipation. Patient denies any chest pain, shortness of breath, palpitations, edema, orthopnea, or PND. He denies any lightheadedness. Due to his constipation, he came to the ER and KUB demonstrated a small-bowel obstruction. He was subsequently admitted for further care and treatment. Cardiology is consulted for preop evaluation for possible surgery. REVIEW OF SYSTEMS: Negative except as per HPI. PAST MEDICAL HISTORY: Coronary artery disease, status post CABG, mitral valve disease, status post bioprosthetic mitral valve replacement, symptomatic bradycardia, status post permanent pacemaker, hypertension, hyperlipidemia, COPD. PAST SURGICAL HISTORY: CABG, mitral valve replacement, permanent pacemaker. ALLERGIES: PENICILLIN. MEDICATIONS: Please see medication list. SOCIAL HISTORY: No tobacco, alcohol or illicit drugs. FAMILY HISTORY: Noncontributory to current illness. PHYSICAL EXAMINATION VITALS: Temperature 96.7 degrees, pulse 58, respiratory rate 18, blood pressure 95/52, and oxygen saturation 97% on 2 L nasal cannula. GENERAL: Elderly man in no acute distress. Awake, alert, well-developed, well-nourished. HEENT: Normocephalic and atraumatic. Pupils equal. No scleral icterus. NECK: Supple. No thyromegaly or cervical lymphadenopathy. No carotid bruits. LUNGS: Clear to auscultation bilaterally. No wheezes or crackles. CARDIOVASCULAR: Normal rate. Regular rhythm. No murmur. Normal S1 and S2. ABDOMEN: Soft and nontender. EXTREMITIES: One plus pitting edema bilaterally. NEURO: Nonfocal exam. LABS: WBC 10.33, hemoglobin 13.6, hematocrit 45, and platelets 258,000. Sodium 127, potassium 4, chloride 92, CO2 26, BUN 16, creatinine 1.3. Chest x-ray with no acute cardiopulmonary abnormalities. CT of the abdomen and pelvis with small-bowel obstruction with transition at a Perdomo's type bowel containing right ventral hernia. The afferent loop is massively dilated suggesting this may be [id number]. Telemetry is normal sinus rhythm. IMPRESSION 1. Small-bowel obstruction. 2. Coronary artery disease: Status post coronary artery bypass graft. 3. Symptomatic bradycardia: Status post permanent pacemaker. 4. Mitral valve disease: Status post bioprosthetic mitral valve replacement. 5. Hypertension. 6. Hyperlipidemia. 7. Chronic obstructive pulmonary disease. RECOMMENDATIONS: Patient had cardiac catheterization performed March of 2018 prior to his pacemaker placement. He had patent SVG to OM with mild nonobstructive CAD. Echocardiogram performed at the office in March 2018 demonstrated normal LV size and function with a normally functioning prosthetic mitral valve. Continue home cardiac medications. Monitor the patient on telemetry. He may proceed to surgery without further cardiac evaluation. Resume Xarelto once hemostasis is achieved or if no surgery is planned. Thank you for this consult. We will continue to follow. Job#: [id number] MARIXA
--- NOTE | 2018-05-19 14:30 | NUR ---
WITH STANDBY ASSIST AND USE OF CANE, PT AMBULATED TO BR, ATTEMPTED BM, NO SUCCESS, STANDBY ASSIST TO BS CHAIR, CALL LIGHT WITHIN REACH
[2018-05-19 16:42] VITALS: BP 108/58
--- NOTE | 2018-05-19 18:21 | NUR ---
MD Cyndy MARES AND Christine MARES INTO SEE PT, DISCUSSED POC, AWARE OF PT PASSING FLATUS BUT NO BM AT THIS TIME, NO NEW ORDERS, STANDBY ASSIST BACK TO CHAIR, CALL LIGHT WITHIN REACH
--- NOTE | 2018-05-19 18:47 | NUR ---
PT HAD SOFT BM
--- NOTE | 2018-05-19 19:00 | NUR ---
RECEIVED REPORT FROM DAY NURSE. PATIENT IS RESTING COMFORTABLY IN CHAIR. PATIENT HAS NASOGASTRIC TUBE HOOKED UP TO LOW SUCTION. NASOGASTRIC TUBE IS PATENT. CALL MINAYA IS WITHIN REACH. WILL CONTINUE TO MONITOR PATIENT.
[2018-05-19 20:00] VITALS: BP 129/54
--- NOTE | 2018-05-19 20:15 | NUR ---
PATIENT JUST HAD A BOWEL MOVEMENT. BOWEL MOVEMENT IS SOFT AND BROWN. WILL CONTINUE TO MONITOR PATIENT FOR BOWEL MOVEMENTS.
--- NOTE | 2018-05-19 23:00 | NUR ---
PATIENT HAS HAD A SECOND BOWEL MOVEMENT. BOWEL MOVEMENT IS SEMI FORMED. WILL CONTINUE TO MONITOR PATIENT FOR BOWEL MOVEMENTS.
[2018-05-20] VITALS (8 sets, daily range): BP systolic 109–160; BP diastolic 53–70
[2018-05-20] MEDS: SODIUM CHLORIDE 0.9% 250ML IRRIG IR SCH ×6 (01:15→21:20)
[2018-05-20] MEDS: SODIUM CHLORIDE 0.9% 1000ML 1,000 ML IV SCH ×2 (01:54→10:07)
[2018-05-20] MEDS: METRONIDAZOLE 500MG/NS 100ML 100 ML IV SCH ×3 (05:33→18:51)
[2018-05-20 05:53] LABS: BASOPHILS % 0.6 % (0.0-1.0); EOSINOPHILS # (AUTO) 0.1 (0.0-0.4); EOSINOPHILS % 1.9 % (0.0-6.0); HEMATOCRIT 39.9 % (38.2-49.6); HEMOGLOBIN 12.3 g/dL (14.0-18.0); LYMPHOCYTES # (AUTO) 0.5 (1.0-3.2); LYMPHOCYTES % 8.8 % (18.0-39.1); MEAN CORPUSCULAR HEMOGLOBIN 20.4 pg (28-32); MEAN CORPUSCULAR HGB CONC 30.8 g/dL (31-35); MEAN CORPUSCULAR VOLUME 66.1 fL (81-99); MONOCYTES # (AUTO) 0.6 (0.2-0.8); MONOCYTES % 10.5 % (4.4-11.3); NEUTROPHILS # (AUTO) 4.2 (2.1-6.9); NEUTROPHILS % 77.6 % (38.7-80.0); PLATELET COUNT 184 x10e3/uL (140-360); RED BLOOD COUNT 6.04 x10e6/uL (4.3-5.7); RED CELL DISTRIBUTION WIDTH 21.4 % (11.7-14.4)
[2018-05-20 06:22] LABS: ALANINE AMINOTRANSFERASE 12 IU/L (0-55); ALBUMIN 3.3 g/dL (3.5-5.0); ALBUMIN/GLOBULIN RATIO 1.3 (0.8-2.0); ALKALINE PHOSPHATASE 55 IU/L (40-150); ANION GAP 12.8 mmol/L (8-16); BLOOD UREA NITROGEN 15 mg/dL (7-26); BUN/CREATININE RATIO 14 (6-25); CALCIUM 8.7 mg/dL (8.4-10.2); CARBON DIOXIDE 23 mmol/L (22-29); CHLORIDE 98 mmol/L (98-107); CREATININE, SERUM 1.06 mg/dL (0.72-1.25); EST GLOMERULAR FILTRATION RATE > 60 ML/MIN (60-); GLUCOSE 75 mg/dL (74-118); POTASSIUM 3.8 mmol/L (3.5-5.1); SODIUM 130 mmol/L (136-145)
[2018-05-20] MEDS: LEVOFLOXACIN 500MG/D5W 100ML IV SCH (06:41)
--- NOTE | 2018-05-20 07:00 | NUR ---
report given to day nurse. patient is resting comfortably on chair by bed. call boo is within reach.
--- NOTE | 2018-05-20 10:46 | NUR ---
MD Christine MARES INTO SEE PT, DISCUSSED POC
--- NOTE | 2018-05-20 11:30 | NUR ---
NGT UNCLAMPED PER MD ORDER
--- NOTE | 2018-05-20 11:50 | NUR ---
PT AMBULATING IN HALLWAY WITH USE OF WALKER, AT SIDE
--- NOTE | 2018-05-20 11:51 | NUR ---
MD HUDOSN INTO SEE PT, DISCUSSED POC, TOLD PT HE CAN HAVE A FEW ICE CHIPS
[2018-05-20] MEDS ORDERED: ALBUTEROL SULFATE HFA 8GM INHALATION AEROSOL INH PRN (12:15)
[2018-05-20] MEDS: DEXTROSE 5%/LACTATED RINGERS 1,000 ML IV SCH ×3 (12:15→22:15)
--- NOTE | 2018-05-20 15:00 | NUR ---
SITTING IN BS CHAIR, CALL LIGHT WITHIN REACH
--- NOTE | 2018-05-20 15:17 | Progress Note ---
DATE: May 20, 2018 CARDIOLOGY PROGRESS NOTE SUBJECTIVE: No major events overnight. Had some bowel movements. Currently, no plans for surgery; however, being monitored for improvement of his small-bowel obstruction. No chest pain. No shortness of breath. OBJECTIVE VITAL SIGNS: Temperature 97.2, pulse 62, respiratory rate 20, blood pressure 118/55, satting 99% on nasal cannula. GENERAL: Obese man, in no acute distress. CARDIOVASCULAR: Regular rate and rhythm. No murmurs, rubs, or gallops. LUNGS: Clear to auscultation bilaterally. ABDOMEN: Obese, soft, mildly tender and distended. NEURO AND PSYCH: Alert and oriented to person, place and time. Normal affect. INPATIENT MEDICATIONS: Reviewed. LABORATORY DATA: Reviewed. IMAGING DATA: Reviewed. TELEMETRY DATA: Reviewed. ASSESSMENT 1. Small bowel obstruction. 2. Coronary artery disease, status post coronary artery bypass grafting in the past. 3. Symptomatic bradycardia, status post permanent pacemaker in the past. 4. Mitral valve disease, status post bioprosthetic mitral valve. 5. Hypertension. 6. Hyperlipidemia. 7. Chronic obstructive pulmonary disease. RECOMMENDATIONS: Continue home CV medications. Hold anticoagulation until patient is ready to be discharged. Thank you for this consult. We will continue to follow. Job#: [id number] ANDREW
[2018-05-20] MEDS ORDERED: FAMOTIDINE 20 MG/2 ML VIAL IV SCH (17:00)
[2018-05-20] MEDS: ENOXAPARIN SOD INJ 40 MG/0.4 ML SYR SC SCH (18:00)
--- NOTE | 2018-05-20 18:15 | NUR ---
PT REPORTS PASSING FLATUS, NO BM, PT AMBULATING IN HALLWAY, STEADY GAIT, AT SIDE
--- NOTE | 2018-05-20 19:31 | NUR ---
WALKING ROUNDS PERFORMED, RECEIVED PT SITTING ON SIDE OF BED. PT IS AAOX3, RR EVEN AND NON-LABORED ON RA. NGT TO (R) NARE CLAMPED AT THIS TIME. LEFT PT SITTING ON SIDE OF BED. BED IN LOW LOCKED POSITION, SIDE RAILS UPX2. FAMILY AT BEDSIDE.
--- NOTE | 2018-05-20 20:40 | NUR ---
PAGED PLACED FOR MD ZARAGOZA CONCERNING PT REPORTS OF LOWER POSTERIOR BACK PAIN. WAITING FOR CALLBACK.
--- NOTE | 2018-05-20 20:45 | NUR ---
SPOKE WITH MD HUDSON CONCERNING PT REPORTS OF PAIN. NEW ORDERS RECEIVED.
[2018-05-20] MEDS: LIDOCAINE 5% PATCH TP SCH (21:20)
[2018-05-20] MEDS: FAMOTIDINE 20 MG/2 ML VIAL IV SCH (21:20)
--- NOTE | 2018-05-20 21:20 | NUR ---
PT REFUSES TO SLEEP IN BED, PT REPORTS IT HURTS HIS LOWER BACK TOO MUCH. PT PREFERS TO SLEEP IN RECLINER. PT WEARING NON SKID SOCKS AND REPORTS HE WILL CALL WHEN HE NEEDS TO GET UP.
--- NOTE | 2018-05-20 21:20 | NUR ---
FLUSHED NGT AND RECONNECTED TO [facility].
[2018-05-21] VITALS (8 sets, daily range): BP systolic 115–139; BP diastolic 56–65
[2018-05-21] MEDS: SODIUM CHLORIDE 0.9% 250ML IRRIG IR SCH ×7 (00:45→23:46)
[2018-05-21] MEDS: METRONIDAZOLE 500MG/NS 100ML 100 ML IV SCH ×5 (00:45→23:46)
--- NOTE | 2018-05-21 01:50 | NUR ---
DISCONNECTED PT FROM SUCTION AND CLAMPED NGT AT THIS TIME.
--- NOTE | 2018-05-21 01:59 | NUR ---
PT REPORTS 10/10 TO LOWER POSTERIOR BACK. PT REPORTS LIDOCAINE PATCH WORKED FOR A LITTLE WHILE BUT NOW HIS BACK IS HURTING TOO MUCH FOR HIM TO SLEEP.
--- NOTE | 2018-05-21 02:05 | NUR ---
PAGE PLACED FOR MD ZARAGOZA CONCERNING PT REPORTS OF UNCONTROLLED PAIN. WAITING FOR CALLBACK.
[2018-05-21 02:41] LABS: CLARITY,URINE CLEAR (CLEAR); COLOR,URINE YELLOW (YELLOW); LEUKOCYTE ESTERASE ,URINE NEGATIVE (NEGATIVE); NITRITE,URINE NEGATIVE (NEGATIVE)
[2018-05-21 02:42] LABS: BACTERIA,URINE RARE /HPF; BILIRUBIN,URINE NEGATIVE (NEGATIVE); EPITHELIAL CELLS,URINE RARE /LPF; KETONES,URINE 1+ (NEGATIVE); PROTEIN,URINE DIPSTICK TRACE (NEGATIVE); URINE UROBILINOGEN 0.2 mg/dL (0.2 - 1); WBC,URINE (MAN) 0-5 /HPF (0-5)
[2018-05-21] MEDS: LEVOFLOXACIN 500MG/D5W 100ML IV SCH (05:08)
--- NOTE | 2018-05-21 06:20 | NUR ---
IV TO (R) AC NOTED TO BE LEAKING. IVF STOPPED. IV DISCONTINUED. CATHETER TIP INTACT. PRESSURE AND DRESSING APPLIED. NEW IV STARTED TO (L) FA 20G. BLOOD RETURN NOTED, FLUSHES WITHOUT DIFFICULTY.
[2018-05-21 07:15] LABS: BASOPHILS % 0.9 % (0.0-1.0); EOSINOPHILS # (AUTO) 0.1 (0.0-0.4); HEMATOCRIT 39.3 % (38.2-49.6); HEMOGLOBIN 12.1 g/dL (14.0-18.0); LYMPHOCYTES # (AUTO) 0.4 (1.0-3.2); LYMPHOCYTES % 9.4 % (18.0-39.1); MEAN CORPUSCULAR HEMOGLOBIN 20.5 pg (28-32); MEAN CORPUSCULAR HGB CONC 30.8 g/dL (31-35); MEAN CORPUSCULAR VOLUME 66.6 fL (81-99); MONOCYTES # (AUTO) 0.5 (0.2-0.8); MONOCYTES % 11.6 % (4.4-11.3); NEUTROPHILS # (AUTO) 3.4 (2.1-6.9); NEUTROPHILS % 75.2 % (38.7-80.0); PLATELET COUNT 189 x10e3/uL (140-360); RED CELL DISTRIBUTION WIDTH 21.4 % (11.7-14.4)
[2018-05-21 07:33] LABS: ALANINE AMINOTRANSFERASE 12 IU/L (0-55); ALBUMIN 3.3 g/dL (3.5-5.0); ALBUMIN/GLOBULIN RATIO 1.3 (0.8-2.0); ALKALINE PHOSPHATASE 50 IU/L (40-150); ANION GAP 12.6 mmol/L (8-16); BLOOD UREA NITROGEN 11 mg/dL (7-26); BUN/CREATININE RATIO 10 (6-25); CALCIUM 8.7 mg/dL (8.4-10.2); CARBON DIOXIDE 24 mmol/L (22-29); CHLORIDE 101 mmol/L (98-107); CREATININE, SERUM 1.07 mg/dL (0.72-1.25); EST GLOMERULAR FILTRATION RATE > 60 ML/MIN (60-); GLUCOSE 70 mg/dL (74-118); MAGNESIUM 1.8 MG/DL (1.3-2.1); POTASSIUM 3.6 mmol/L (3.5-5.1); SODIUM 134 mmol/L (136-145)
[2018-05-21 07:53] LABS: THYROID STIMULATING HORMONE 3.119 uIU/mL (0.350-4.940)
--- NOTE | 2018-05-21 08:14 | Diagnostic Imaging Report ---
EXAM: ABDOMEN 2 VIEW DATE: 05/21/2018 5:00 AM INDICATION: Small bowel obstruction COMPARISON: 05/19/2018 CT, no report available FINDINGS: Side holes of NG tube below GE junction. Gas-filled loops of bowel present. Trace amount of pneumoperitoneum under the right hemidiaphragm. Nonspecific air-fluid levels central lower abdomen which appear differential consistent with known small bowel obstruction. Degenerative changes hips. IMPRESSION: Persistent gas-filled loops of bowel with air-fluid levels lower abdomen and probable pneumoperitoneum. CT could be obtained for further evaluation. Case discussed with patients nurse Canela at 0805 on date of dictation. Signed by: Dr. Agusto Rojas MD on 05/21/2018 8:10 AM
[2018-05-21] MEDS ORDERED: DIATRIZOATE MEGL/DIATRIZOA SOD 30 ML BTL PO ONE (08:37)
[2018-05-21] MEDS: FAMOTIDINE 20 MG/2 ML VIAL IV SCH ×2 (08:42→20:35)
[2018-05-21] MEDS ORDERED: MORPHINE SULFATE INJ 4 MG/ML INJ 1ML ONE (08:51)
[2018-05-21] MEDS ORDERED: MORPHINE SULFATE INJ 4 MG/ML INJ 1ML IV ONE (09:15)
[2018-05-21] MEDS: DEXTROSE 5%/LACTATED RINGERS 1,000 ML IV SCH ×2 (09:59→18:15)
--- NOTE | 2018-05-21 10:01 | NUR ---
PT WHEELED OFF UNIT VIA WC FOR CT OF ABD, NO CHANGE IN CONDITION
--- NOTE | 2018-05-21 10:38 | Diagnostic Imaging Report ---
EXAM: CT Abdomen and Pelvis WITH contrast INDICATION: SBO COMPARISON: same day radiographs, CT 2.1.19 (no report) TECHNIQUE: Abdomen and Pelvis was scanned utilizing a multidetector helical scanner after administration of IV contrast. Coronal and sagittal reformations were obtained. IV CONTRAST: 100 ml Isovue 370 COMPLICATIONS: None RADIATION DOSE: Total DLP:828 mGy*cm Estimated effective dose: (DLP x 0.015 x size factor) mSv CTDIvol has been reviewed. It is below the limits set by the Radiation Protocol Committee (RPC). Appropriate CT dose reduction techniques were utilized. FINDINGS: Abdomen: Lung Bases: Atelectasis and emphysema. Advanced coronary artery vascular calcifications. 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 Solid Organs: Calcified gallstones. Nodularity of the adrenal glands. Renal hypodensities statistically cyst. Partial fatty replacement of pancreas. Upper GI Tract: Gastric catheter decompresses stomach. Dilated small bowel proximal to ventral wall hernia measuring at least 9 cm. Small bowel distally decompressed. Vascularity: Aortic vascular calcifications with no aneurysm. Lymph Nodes: No suspicious adenopathy. Other: Ventral wall hernia with loop of small bowel as above. Pelvis: Bladder: Unremarkable. Other: None. Colon: Moderate diverticulosis predominantly sigmoid colon. Contrast is present in the colon. Bones: Degenerative changes. Height loss L2. IMPRESSION: 1. Persistent small bowel obstructive changes with lead point at ventral wall hernia with loop of interposed small bowel. Loops of small bowel just proximal to hernia measure at least 9 cm. Air-fluid levels present. No pneumatosis, portal venous gas, or pneumoperitoneum identified. 2. Contrast present in the colon, presumably from study on 05/19/2018. Findings suggest that small bowel obstruction is incomplete. 3. Cholelithiasis. 4. Diverticulosis. 5. Other findings as above. Signed by: Dr. Agusto Rojas MD on 05/21/2018 10:35 AM
[2018-05-21] MEDS ORDERED: MORPHINE SULFATE INJ 4 MG/ML INJ 1ML IV PRN (12:00)
--- NOTE | 2018-05-21 14:43 | NUR ---
MD HUDSON INTO SEE PT, MADE AWARE OF PT JUST REPORTING CHRONIC GROIN RASH, ORDERS NOTED
[2018-05-21] MEDS ORDERED: NYSTATIN 15 GM POWDER UD BTL TOP PRN (14:45)
--- NOTE | 2018-05-21 14:57 | NUR ---
AMBULATING IN HALLWAY, STEADY GAIT
--- NOTE | 2018-05-21 14:59 | Diagnostic Imaging Report ---
EXAM: ABDOMEN-1VIEW (KUB) DATE: 05/21/2018 2:00 PM INDICATION: Small bowel obstruction COMPARISON: Same day radiographs and CT as well as 05/19/[address] FINDINGS: Severe underpenetration and body habitus makes exam essentially nondiagnostic. IMPRESSION: Nondiagnostic. Signed by: Dr. Agusto Rojas MD on 05/21/2018 2:55 PM
[2018-05-21] MEDS: ENOXAPARIN SOD INJ 40 MG/0.4 ML SYR SC SCH (16:59)
[2018-05-21] MEDS ORDERED: IOPAMIDOL 370 MG/ML 200 ML INFUS..BTL INJ ONE (18:41)
[2018-05-21] MEDS ORDERED: SODIUM CHLORIDE 0.9% 50ML 50 ML ONE (18:41)
--- NOTE | 2018-05-21 18:42 | NUR ---
SITTING IN BS CHAIR, EYES CLOSED, RR EVEN AND NONLABORED, CALL LIGHT WITHIN REACH
[2018-05-21] MEDS: LIDOCAINE 5% PATCH TP SCH (20:35)
--- NOTE | 2018-05-21 20:41 | NUR ---
BARIATRIC CHAIR ARRIVED AND PROVIDED FOR PT. PT REPORTS FEELING RELIEF. PT REPORTS HEADACHE AT THIS TIME, PT DOES NOT WANT TO TAKE MORPHINE FOR HEADACHE. PAGE PLACED FOR MD ZARAGOZA FOR PAIN MANAGEMENT.
--- NOTE | 2018-05-21 20:57 | NUR ---
SPOKE WITH MD HUDSON CONCERNING PT REPORTS OF HEADACHE. NO NEW ORDERS RECEIVED.
[2018-05-22] VITALS (9 sets, daily range): BP systolic 110–125; BP diastolic 51–67
[2018-05-22] MEDS: DEXTROSE 5%/LACTATED RINGERS 1,000 ML IV SCH ×2 (02:50→18:18)
[2018-05-22] MEDS: METRONIDAZOLE 500MG/NS 100ML 100 ML IV SCH ×3 (06:00→17:16)
--- NOTE | 2018-05-22 06:00 | NUR ---
WALL CANISTER FOR SUCTION CHANGED AT THIS TIME.
[2018-05-22] MEDS: SODIUM CHLORIDE 0.9% 250ML IRRIG IR SCH ×5 (06:12→21:30)
[2018-05-22 06:22] LABS: BASOPHILS % 0.7 % (0.0-1.0); EOSINOPHILS # (AUTO) 0.1 (0.0-0.4); EOSINOPHILS % 2.6 % (0.0-6.0); HEMATOCRIT 39.8 % (38.2-49.6); HEMOGLOBIN 12.2 g/dL (14.0-18.0); LYMPHOCYTES # (AUTO) 0.5 (1.0-3.2); LYMPHOCYTES % 9.3 % (18.0-39.1); MEAN CORPUSCULAR HEMOGLOBIN 20.4 pg (28-32); MEAN CORPUSCULAR HGB CONC 30.7 g/dL (31-35); MEAN CORPUSCULAR VOLUME 66.6 fL (81-99); MONOCYTES # (AUTO) 0.5 (0.2-0.8); MONOCYTES % 8.9 % (4.4-11.3); NEUTROPHILS # (AUTO) 4.2 (2.1-6.9); NEUTROPHILS % 77.6 % (38.7-80.0); PLATELET COUNT 214 x10e3/uL (140-360); RED BLOOD COUNT 5.98 x10e6/uL (4.3-5.7)
[2018-05-22 06:46] LABS: ANION GAP 13.8 mmol/L (8-16); CREATININE, SERUM 1.2 mg/dL (0.72-1.25); POTASSIUM 3.8 mmol/L (3.5-5.1)
[2018-05-22] MEDS: LEVOFLOXACIN 500MG/D5W 100ML IV SCH (07:00)
--- NOTE | 2018-05-22 07:31 | NUR ---
Received patient and walking rounds complete. Patient awake in chair at this time, no signs of distress. Call light in reach will continue to monitor.
[2018-05-22 07:45] LABS: EOSINOPHILS % (MANUAL) 3 % (0-7); LYMPHOCYTES % (MANUAL) 9 % (19-48); MONOCYTES % (MANUAL) 5 % (3.4-9.0); NEUTROPHILS % (MANUAL) 81 % (40-74)
[2018-05-22 07:46] LABS: ANISOCYTOSIS SLIGHT; MICROCYTOSIS MODERATE; PLATELET ESTIMATE ADEQUATE; PLATELET MORPHOLOGY COMMENT NORMAL; RBC MORPHOLOGY COMMENT ABNORMAL
--- NOTE | 2018-05-22 08:57 | NUR ---
Patient left for abdominal x-ray via wheelchair.
--- NOTE | 2018-05-22 09:20 | NUR ---
Patient back from x-ray, no signs of distress
--- NOTE | 2018-05-22 09:30 | NUR ---
Patient A/O x3, even respirations unlabored on RA. Last bowel movement Tuesday, bowel sounds hypoactive. NGT right nare to low continuous suction. Patient is NPO at this time. LFA 20 gauge with D5LR @ 100 mls/hr. Patient voids in urinal. Rash to groin area, treating with Nystatin and Bactroban. Call light in reach, will continue to monitor.
--- NOTE | 2018-05-22 10:04 | Diagnostic Imaging Report ---
EXAM: ABDOMEN 2 VIEW DATE: 05/22/2018 7:34 AM INDICATION: Small bowel obstruction. COMPARISON: KUB 05/21/[address] Abdomen/Pelvis 05/21/2018. FINDINGS: Limited study secondary to underpenetration and body habitus. There are dilated small bowel loops with air-fluid level with air seen in a non-distended colon. Enteric tube terminates in the expected location of the stomach. Partially seen pacemaker leads. Surgical clips project over the pelvis. No acute osseous abnormality. IMPRESSION: Limited study secondary to underpenetration and body habitus. Findings of continued partial small bowel obstruction. Signed by: Dr. Rubén Deal MD on 05/22/2018 10:01 AM
[2018-05-22] MEDS: FAMOTIDINE 20 MG/2 ML VIAL IV SCH ×2 (10:30→21:30)
--- NOTE | 2018-05-22 10:52 | NUR ---
Left FA IV removed, new right wrist IV placed.
[2018-05-22] MEDS: MUPIROCIN 2% OINT 22 GM TUBE TOP SCH ×2 (11:09→17:16)
--- NOTE | 2018-05-22 15:25 | NUR ---
Patient ambulating in hallway at this time, steady gate, no signs of distress.
--- NOTE | 2018-05-22 15:36 | Progress Note ---
DATE: CARDIOLOGY PROGRESS NOTE SUBJECTIVE: Patient is still n.p.o. with an NG tube placed. Denies any chest pain or shortness of breath. Reports lower extremity swelling. OBJECTIVE VITAL SIGNS: Temperature is 96.0. Heart rate is 66. Respirations are 20. Blood pressure is 112/54. Oxygen saturation is 95% on room air. GENERAL: Well-appearing, elderly man seated at bedside, in no apparent distress. ENT: There is an NG tube present. CARDIOVASCULAR: Regular rate and rhythm, no murmurs. LUNGS: Clear to auscultation. No wheezing or rales. ABDOMEN: There is a hernia present. Nontender. LABORATORY DATA: Reviewed. Hemoglobin 12.2. Creatinine 1.2. TELEMETRY MONITORING: Normal sinus rhythm with premature ventricular complexes and premature atrial complexes. IMPRESSION 1. Small-bowel obstruction. 2. Coronary artery disease, status post coronary artery bypass graft surgery. 3. Symptomatic bradycardia, status post permanent pacemaker implantation. 4. Mitral valve disease, status post bioprosthetic mitral valve replacement. RECOMMENDATIONS: Continue current cardiovascular medications. Patient has lower extremity swelling, and he is currently on intravenous fluid hydration. Consider decreasing this as his creatinine is 1.2 and he has lower extremity swelling. Hold anticoagulation as he is n.p.o. for possible surgical intervention if required. Job#: [id number]
[2018-05-22] MEDS: LIDOCAINE 5% PATCH TP SCH ×2 (15:41→21:30)
--- NOTE | 2018-05-22 15:45 | NUR ---
Applied Lidocaine patch to lower back
--- NOTE | 2018-05-22 17:10 | NUR ---
CASE MANAGEMENT INITIAL ASSESSMENT Food Safety Scientist to bedside to discuss plan of care with patient/family. CM/SW role and care transitions discussed. Anticipated discharge plan discussed along with duration of care. CM/SW discussed patients right to make decisions in care. CM/SW work hours given. Patient lives: with [place] Admit/Transfer: thru ED Hospital/ER visits since last admit: Was admitted in March. visited the ED in [place] twice last month POA/Emergency contact: [place] Morin [phone] (cell), (home) Current/Previous Home Health: none PCP/Follow-up Care: Dr. Mariah Murphy Current/Previous DME: has portable oxygen concentrator and home oxygen concentrator. pt does not use all the time Medications (referring to index hospitalization or the first time you were in the hospital) a. Were changes made in your medications when you were in the hospital on [date of index hospitalization]? yes b. Did you understand the changes? yes c. Were you able to obtain your new medications right away? yes d. Were you able to take your medications like the doctor wanted you to? yes e. Did the hospital give you an accurate, easy to understand list of medications when you left? yes Scale of 1-10 how comfortable does patient feel with disease management in outpatient settin Other Services: none Employment Status: retired Areas of Concerns: bowel obstruction, weakness Referral Needs: may need home health; pt also stating he needs a rollator Education Needs: medical management IMM/CHRISTOPHER given and signed (if applicable): none at this time Goal for discharge: "home as soon as possible" CM/SW left business card at the bedside with contact information. Name and number was also written on the patients whiteboard. Patient verbalized understanding of discussion. CM will follow-up with ongoing discharge and transition of care needs.
[2018-05-22] MEDS: ENOXAPARIN SOD INJ 40 MG/0.4 ML SYR SC SCH (17:16)
--- NOTE | 2018-05-22 19:20 | NUR ---
RECEIVED PATIENT RESTING IN BEDSIDE CHAIR. PATIENT FAMILY MEMBER AT SIDE. NGT TO WALL SUCTION. NO NEEDS VOICED AT THIS TIME TIME. BED LOCKED AND IN LOWEST POSITION, CALL LIGHT WITHIN EASY REACH. WILL CONTINUE TO MONITOR THE PATIENT CLOSELY.
[2018-05-23] VITALS: BP 115/56
[2018-05-23] MEDS: DEXTROSE 5%/LACTATED RINGERS 1,000 ML IV SCH ×3 (00:15→21:00)
[2018-05-23] MEDS: SODIUM CHLORIDE 0.9% 250ML IRRIG IR SCH ×6 (01:15→20:32)
[2018-05-23 04:00] VITALS: BP 121/82
--- NOTE | 2018-05-23 04:53 | NUR ---
Patient is asleep with no pain or distress noted. Call boo within reach.
[2018-05-23] MEDS: METRONIDAZOLE 500MG/NS 100ML 100 ML IV SCH ×5 (05:22→23:21)
--- NOTE | 2018-05-23 05:42 | NUR ---
Patient insisted to be off low wall suction to NG tube. Educated patient on the need for the suction.
--- NOTE | 2018-05-23 06:31 | NUR ---
PATIENT RETURNED FROM RADIOLOGY.
--- NOTE | 2018-05-23 06:43 | Diagnostic Imaging Report ---
EXAM: ABDOMEN-1VIEW (KUB) DATE: 05/23/2018 6:00 AM INDICATION: Small bowel obstruction COMPARISON: 05/22/2018 radiographs and 05/21/2018 CT, no reports available FINDINGS: NG tube with side holes below GE junction. Contrast is present within the colon. Gas-filled loops of bowel remain. IMPRESSION: Contrast within colon. Signed by: Dr. Agusto Rojas MD on 05/23/2018 6:40 AM
[2018-05-23] MEDS: LEVOFLOXACIN 500MG/D5W 100ML IV SCH (06:45)
[2018-05-23 07:14] LABS: ANION GAP 15.4 mmol/L (8-16); CREATININE, SERUM 1.18 mg/dL (0.72-1.25); POTASSIUM 3.4 mmol/L (3.5-5.1)
--- NOTE | 2018-05-23 07:17 | NUR ---
Report given to morning nurse.
--- NOTE | 2018-05-23 07:23 | NUR ---
Received patient and walking rounds complete. Patient awake resting in bariatric chair at this time. No signs of distress. Call light in reach, spouse at bedside, will continue to monitor.
[2018-05-23 08:01] VITALS: BP 106/64
[2018-05-23] MEDS ORDERED: POTASSIUM CHLORIDE 20MEQ/100ML 100 ML IV ONE (08:45)
[2018-05-23] MEDS: FAMOTIDINE 20 MG/2 ML VIAL IV SCH ×2 (09:00→20:32)
[2018-05-23] MEDS: FUROSEMIDE INJ 10 MG/ML 2 ML VIAL IV SCH (09:00)
--- NOTE | 2018-05-23 09:00 | NUR ---
Patient A/O x3, even respirations on RA. Last BM Tuesday, bowel sounds hypoactive. R wrist IV with D5LR @100 mls/hr. Patient is NPO at this time. NGT to right nare set to low continuous suction. Patient is ambulatory. Voids in urinal, tea colored urine. Lidocaine patch on lower back pain 5/10. Patient has rash in groin area, treating with nystatin and Bactroban. Call light in reach, will continue to monitor. Spouse at bedside.
[2018-05-23] MEDS: MUPIROCIN 2% OINT 22 GM TUBE TOP SCH ×2 (09:01→18:34)
[2018-05-23] MEDS: LIDOCAINE 5% PATCH TP SCH (09:01)
--- NOTE | 2018-05-23 09:06 | Diagnostic Imaging Report ---
PROCEDURE: CHEST SINGLE (PORTABLE) COMPARISON: Patients [facility], DX, CHEST SINGLE (PORTABLE), 05/19/2018, 9:35. INDICATIONS: COUGH FINDINGS: LINES: Sternotomy wire sutures and mediastinal clips are present. Dual-lead left chest cardiac device. NG tube extends below the diaphragm. LUNGS: Interval development of a focal opacity in the left mid perihilar region may represent an infiltrate. Followup study would be of benefit. Improvement in the basilar atelectasis. PLEURA: No effusions or pneumothorax. HEART & MEDIASTINUM: The heart is within normal size-limits. BONES & SOFT TISSUES: No acute findings. CONCLUSION: Interval development of a focal left perihilar opacity. Tanner Thompson D.O. Dictated by: Tanner Thompson D.O. on 05/23/2018 at 9:17 Electronically approved by: Tanner Thompson D.O. on 05/23/2018 at 9:17
--- NOTE | 2018-05-23 09:43 | NUR ---
Changed out NGT canister and replaced with new one.
[2018-05-23 10:59] VITALS: BP 106/64
--- NOTE | 2018-05-23 12:15 | NUR ---
Dr. Christine johnson said it is okay to clamp NGT.
[2018-05-23] MEDS ORDERED: POTASSIUM CHLORIDE 20MEQ/100ML 100 ML IV NR (14:00)
--- NOTE | 2018-05-23 14:10 | NUR ---
Visit made by the Spiritual Care Department Pastoral Visitor, Marissa Meng. PV provided pastoral presence, prayer, hospitality, and supportive listening. Pastoral Visitor informed pt/family of the scope of [employer] Services and availability. TRAVIS GONZALEZ Rubber Roller Grinder Operator Spiritual Care Department O: [phone] Pager: [phone] ([phone] number calling from)
[2018-05-23 17:00] LABS: BILIRUBIN,URINE NEGATIVE (NEGATIVE); CLARITY,URINE CLEAR (CLEAR); COLOR,URINE YELLOW (YELLOW); KETONES,URINE 1+ (NEGATIVE); LEUKOCYTE ESTERASE ,URINE TRACE (NEGATIVE); NITRITE,URINE NEGATIVE (NEGATIVE); PROTEIN,URINE DIPSTICK TRACE (NEGATIVE); URINE UROBILINOGEN 0.2 mg/dL (0.2 - 1)
[2018-05-23 17:04] LABS: RBC,URINE 0-5 /HPF (0-5)
[2018-05-23] MEDS: ENOXAPARIN SOD INJ 40 MG/0.4 ML SYR SC SCH (17:51)
--- NOTE | 2018-05-23 19:46 | Progress Note ---
DATE: May 23, 2018 CARDIOLOGY PROGRESS NOTE SUBJECTIVE: No major events overnight. OBJECTIVE: VITAL SIGNS: Temperature 96.2, pulse 63, respiratory rate 18, blood pressure 106/64, satting 95% on room air. GENERAL: Elderly man, in no acute distress. CARDIOVASCULAR: Regular rate and rhythm. No murmurs, rubs, or gallops. LUNGS: Clear to auscultation. ABDOMEN: Soft, mildly tender, and distended. NEURO AND PSYCH: Alert and oriented x2. LABORATORY DATA: Reviewed. TELEMETRY DATA: Reviewed. INPATIENT MEDICATIONS: Reviewed. ASSESSMENT AND PLAN: 1. Small-bowel obstruction. 2. History of coronary artery disease, status post coronary artery bypass graft surgery in the past. 3. Symptomatic bradycardia, status post permanent pacemaker placement in the past. 4. Mitral valve disease, status post bioprosthetic mitral valve replacement. RECOMMENDATIONS: Continue current cardiovascular medications. Not on any antiplatelet or anticoagulant therapy given possible pending surgery for small-bowel obstruction. Doing well from cardiovascular standpoint. Would decrease the rate of his fluids given that he is starting a lower extremity edema. Thank you for this consult. Will continue to follow. Job#: [id number]
[2018-05-23 20:00] VITALS: BP 133/60
[2018-05-24] VITALS (8 sets, daily range): BP systolic 110–139; BP diastolic 53–82
[2018-05-24] MEDS: SODIUM CHLORIDE 0.9% 250ML IRRIG IR SCH ×5 (01:15→17:15)
[2018-05-24] MEDS: METRONIDAZOLE 500MG/NS 100ML 100 ML IV SCH ×4 (05:15→23:32)
[2018-05-24] MEDS: DEXTROSE 5%/LACTATED RINGERS 1,000 ML IV SCH (06:15)
--- NOTE | 2018-05-24 06:22 | NUR ---
returned from radiology, stable condition.
[2018-05-24 06:30] LABS: BASOPHILS % 0.7 % (0.0-1.0); EOSINOPHILS # (AUTO) 0.2 (0.0-0.4); EOSINOPHILS % 3.9 % (0.0-6.0); HEMATOCRIT 44.4 % (38.2-49.6); HEMOGLOBIN 12.6 g/dL (14.0-18.0); LYMPHOCYTES # (AUTO) 0.5 (1.0-3.2); LYMPHOCYTES % 9.4 % (18.0-39.1); MEAN CORPUSCULAR HEMOGLOBIN 19.4 pg (28-32); MEAN CORPUSCULAR HGB CONC 28.4 g/dL (31-35); MEAN CORPUSCULAR VOLUME 68.3 fL (81-99); MONOCYTES # (AUTO) 0.5 (0.2-0.8); MONOCYTES % 9.6 % (4.4-11.3); NEUTROPHILS # (AUTO) 4.3 (2.1-6.9); PLATELET COUNT 239 x10e3/uL (140-360); RED CELL DISTRIBUTION WIDTH 21.9 % (11.7-14.4)
--- NOTE | 2018-05-24 06:45 | Diagnostic Imaging Report ---
EXAM: ABDOMEN 2 VIEW DATE: 05/24/2018 6:00 AM INDICATION: Bowel obstruction COMPARISON: 05/23/2018, no report available FINDINGS: NG tube with side holes below GE junction. Residual contrast in the colon. Surgical clips overlying the pelvis. Body habitus, underpenetration, and motion artifact degrades image quality. On upright image there is a dilated loop of what appears to be small bowel in the lower central abdomen with possible differential fluid level. IMPRESSION: As above. Signed by: Dr. Agusto Rojas MD on 05/24/2018 6:42 AM
[2018-05-24 06:56] LABS: ALBUMIN 3.5 g/dL (3.5-5.0); ALBUMIN/GLOBULIN RATIO 1.3 (0.8-2.0); ANION GAP 13.5 mmol/L (8-16); CALCIUM 9.2 mg/dL (8.4-10.2); CREATININE, SERUM 1.27 mg/dL (0.72-1.25); POTASSIUM 3.5 mmol/L (3.5-5.1)
[2018-05-24] MEDS: LEVOFLOXACIN 500MG/D5W 100ML IV SCH (06:59)
[2018-05-24] MEDS: FUROSEMIDE INJ 10 MG/ML 2 ML VIAL IV SCH (09:00)
[2018-05-24] MEDS: FAMOTIDINE 20 MG/2 ML VIAL IV SCH ×2 (09:00→21:35)
[2018-05-24] MEDS: LIDOCAINE 5% PATCH TP SCH (09:00)
[2018-05-24] MEDS: MUPIROCIN 2% OINT 22 GM TUBE TOP SCH ×2 (09:00→17:00)
--- NOTE | 2018-05-24 09:00 | NUR ---
Spoke to Dr. Christine Estrada regarding discharge plan. Need to continue on IV abx. He stated NGT to be removed today. Pt can have sips of water. Stated he does not see the pt discharging before Tuesday. Will need surgery if obstruction reoccurs.
[2018-05-24 10:14] LABS: ELLIPTOCYTE, RBC SLIGHT; HYPOCHROMASIA SLIGHT; PLATELET ESTIMATE ADEQUATE; PLATELET MORPHOLOGY COMMENT NORMAL; RBC MORPHOLOGY COMMENT NORMAL
[2018-05-24] MEDS: POTASSIUM CHLORIDE 20 MEQ in DEXTROSE 5%/LACTATED RINGERS 1,000 ML IV SCH ×2 (10:30→23:32)
[2018-05-24] MEDS ORDERED: POTASSIUM CHLORIDE 10MEQ EA ONE (11:09)
--- NOTE | 2018-05-24 15:23 | NUR ---
Nutrition Intervention Note RD Recommendation(s) for Physician: - ADAT to goal of GI Soft. - Recommend Ensure Clear TID. - If unable to advance diet within 24-48 hours, recommend PN of 1920 ml, D30W 150 g/day, AA 10% 135 g/day, lytes per current lab trend of NaCl 35 mEq/L, KCl 35 mEq/L, K Phos 10 mmol/L, Mg Sulfate 10 mEq/L, Ca Gluconate 5 mEq/L, MVI, trace, and thiamine. - Please check Phos and Mg with BMP, replace low lytes as needed. Pt at risk for refeeding syndrome due to NPO time frame with no Phos replacement. Check TG weekly. - If/when PN initiated, recommend D/C or decrease rate of IVF. Plan of Care: RD following, monitoring for tolerance and adequacy Nutrition reason for involvement: Nutrition Risk Trigger- NPO/CL x [address] Assessment 05/24: 78 YOM admitted for SBO, pt assessed today due to diet of NPO/CL x 5 days. Pt discussed during am rounds, pt has been pending surgical intervention with no plan yet. Per am rounds no additional testing completed to determine if obstruction is resolved. NGT output decreased significantly yesterday and NGT D/C'd. Pt sleeping heavily at time of visit, unable to wake and no family at bedside- unable to obtain nutrition hx at this time. Chart reviewed. PN and diet rec's provided. Will monitor and continue to follow. Principal Problems/Diagnoses: SBO PMH: CAD, CABG, pacemaker GI: LBM 05/19 per FS Skin: WDL Labs: 05/24: Na 136, K 3.5, Cl 101, CO2 25, BUN 10, Cr 1.27, Gluc 80 Meds: zofran, K-dur, KCl IVPB, lasix, pepcid IVF: NS at 100 ml/hr, D5LR at 80 ml/hr Ht: 73 in Wt: 270 lb BMI: 35.6 IBW: 184 lb Malnutrition Evaluation (05/24/18) The patient does not meet criteria for a specified degree of malnutrition at this time. Will re-evaluate at follow-up as appropriate. Nutrition Prescription (Diet Order): NPO, may have sips of water Estimated Nutritional Needs: 0032-8418 calories/day (22-25 kcal/kg IBW) 125-167 g protein/day (1.5-2 g pro/kg IBW) Diet Adequacy: Meeting fluid needs, Not meeting calorie needs, Not meeting protein needs Diet Education Needs Assessment: Diet education not indicated, patient on temporary/transition diet. Nutrition Care Level: High Nutrition Diagnosis: Inadequate energy and protein intake related to SBO as evidenced by NPO/CL x day 5 and not meeting needs. Goal: Patient will meet 75-100% of estimated needs by follow up Progress: N/A Interventions: Fiber-modified diet, Commercial beverage, Composition, Rate, Route, IVF, Recommended Modifications Monitoring/Evaluation: Total energy intake, Total protein intake, Formula/Solution, IVF, Prescription medication, Modified diet, Liquid supplement, Weight change Signed: Elham Hayes RD, LD, [facility]
--- NOTE | 2018-05-24 17:17 | NUR ---
MD Adan FONTANA INTO SEE PT, MADE AWARE OF HR AT 48BPM, NO NEW ORDERS AT THIS TIME
--- NOTE | 2018-05-24 17:48 | NUR ---
SITTING IN BS CHAIR, PT STATES "ARM JUST URSULA BLEW UP REAL QUICK", ARM NOTED TO BE SWOLLEN, IV FLUIDS STOPPED, PT EDUCATED TO ELEVATE UE, VERBALIZED UNDERSTANDING
[2018-05-24] MEDS: ENOXAPARIN SOD INJ 40 MG/0.4 ML SYR SC SCH (18:00)
--- NOTE | 2018-05-24 18:15 | NUR ---
NEW 20G TO LEFT HAND, TOLERATED WELL
--- NOTE | 2018-05-24 19:26 | NUR ---
WALKING ROUNDS PERFORMED, RECEIVED PT SITTING IN BARIATRIC CHAIR, AAOX3, RR EVEN AND NON-LABORED, ON RA. NO S.SX OF DISTRESS NOTED. LEFT PT SITTING IN CHAIR, CALL LIGHT WITHIN REACH.
--- NOTE | 2018-05-24 22:30 | NUR ---
Patient right forearm was weeping so gauze and Kerlix was placed on the forearm
[2018-05-25] VITALS (8 sets, daily range): BP systolic 90–129; BP diastolic 53–62
[2018-05-25] MEDS: METRONIDAZOLE 500MG/NS 100ML 100 ML IV SCH ×3 (05:06→17:15)
[2018-05-25] MEDS: LEVOFLOXACIN 500MG/D5W 100ML IV SCH (06:19)
[2018-05-25 06:34] LABS: ANION GAP 12.6 mmol/L (8-16); CALCIUM 8.7 mg/dL (8.4-10.2); CREATININE, SERUM 1.21 mg/dL (0.72-1.25); POTASSIUM 3.6 mmol/L (3.5-5.1)
--- NOTE | 2018-05-25 07:10 | NUR ---
pt alert resp even and unlabored, no distress noted at this time, pt able to make needs known, call light in reach.
[2018-05-25] MEDS: FAMOTIDINE 20 MG/2 ML VIAL IV SCH ×2 (08:35→21:45)
[2018-05-25] MEDS: FUROSEMIDE INJ 10 MG/ML 2 ML VIAL IV SCH (08:35)
[2018-05-25] MEDS: LIDOCAINE 5% PATCH TP SCH (08:42)
[2018-05-25] MEDS ORDERED: POTASSIUM CHLORIDE 10MEQ EA PO SCH ×2 (09:00)
--- NOTE | 2018-05-25 10:41 | NUR ---
WOUND CARE VISIT: CHECK MATTRESS PT VISIT: Patient Sitting on Chair at bedside. C/O unable to sleep in a few days due to uncomfortable mattress. - Visco Mattress in place. - States bed too soft at center. - Air Waffle Support attempted but continues to be uncomfortable - Mattress inspected. Functioning appropriately with equal densities across mattress. Not fatigued. - [employer] Supervisor arrived during visit with new frame and non-adjustable mattress ( Mattress is more firm - which is what patient desires) - Patient to attempt use of new frame and mattress. - If new mattress & frame not successful, Recommend use of Visco Alternating Pressure Air Mattress and titrate pressure for comfort. Possible Discharge Today. Patient to try and take a nap. Thank you for reaching out to Wound Care. Addendum: 05/25/18 at 1051 by Dre Chin RN Amended: Links added.
[2018-05-25] MEDS: POTASSIUM CHLORIDE 20 MEQ in DEXTROSE 5%/LACTATED RINGERS 1,000 ML IV SCH (11:46)
[2018-05-25] MEDS: MUPIROCIN 2% OINT 22 GM TUBE TOP SCH ×2 (12:47→17:15)
--- NOTE | 2018-05-25 16:52 | NUR ---
WOUND CARE VISIT: Follow up re mattress. PT VISIT: - Patient happy with new frame and mattress. States able to get some rest. - Will follow up if needed/ consulted. Thank you for reaching out to Wound Care. Addendum: 05/25/18 at 1654 by Dre Chin RN Amended: Links added.
[2018-05-25] MEDS: ENOXAPARIN SOD INJ 40 MG/0.4 ML SYR SC SCH (17:15)
--- NOTE | 2018-05-25 19:19 | NUR ---
walking rounds performed, received pt sitting in chair, aaox3, rr even and non-labored, on ra. no s/sx of distress noted. left pt lsitting in chair call light within reach.
--- NOTE | 2018-05-25 19:59 | NUR ---
report given to oncoming nurse
[2018-05-26] VITALS: BP 92/68
--- NOTE | 2018-05-26 00:05 | NUR ---
DRESSING ON RIGHT ARM CHANGED
[2018-05-26] MEDS: METRONIDAZOLE 500MG/NS 100ML 100 ML IV SCH (00:10)
--- NOTE | 2018-05-26 00:31 | NUR ---
SPOKE WITH DR. ZARAGOZA ABOUT PATIENT HAVING MULTIPLE LOOSE STOOLS AND SOILING HIS CLOTHES. DR. ZARAGOZA ORDERED FOR 1 TAB OF IMODIUM, WELL TO TEST STOOL FOR C DIFF. DR. ZARAGOZA WANTS CONFIRMATION WITH DR. RAMON GOMEZ ABOUT THE IMODIUM AND STOOL BEFORE ORDERING. DR. RAMON GARCIA SAID TO GIVE 1 TAB OF IMODIUM BUT DO NOT TEST FOR C DIFF BECAUSE PATIENT IS HERE FOR BOWEL OBSTRUCTION.
[2018-05-26] MEDS ORDERED: LOPERAMIDE HCL 2 MG CAP PO ONE (00:45)
[2018-05-26 06:22] LABS: BASOPHILS % 0.4 % (0.0-1.0); EOSINOPHILS # (AUTO) 0.1 (0.0-0.4); EOSINOPHILS % 2.6 % (0.0-6.0); HEMATOCRIT 42.7 % (38.2-49.6); HEMOGLOBIN 12.6 g/dL (14.0-18.0); LYMPHOCYTES # (AUTO) 0.5 (1.0-3.2); LYMPHOCYTES % 9.7 % (18.0-39.1); MEAN CORPUSCULAR HEMOGLOBIN 19.7 pg (28-32); MEAN CORPUSCULAR HGB CONC 29.5 g/dL (31-35); MEAN CORPUSCULAR VOLUME 66.9 fL (81-99); MONOCYTES # (AUTO) 0.5 (0.2-0.8); MONOCYTES % 9.9 % (4.4-11.3); NEUTROPHILS # (AUTO) 4.2 (2.1-6.9); NEUTROPHILS % 76.8 % (38.7-80.0); PLATELET COUNT 204 x10e3/uL (140-360); RED BLOOD COUNT 6.38 x10e6/uL (4.3-5.7); RED CELL DISTRIBUTION WIDTH 21.6 % (11.7-14.4)
[2018-05-26 06:52] LABS: ALBUMIN 3.2 g/dL (3.5-5.0); ALBUMIN/GLOBULIN RATIO 1.2 (0.8-2.0); ANION GAP 13.8 mmol/L (8-16); CALCIUM 8.7 mg/dL (8.4-10.2); CREATININE, SERUM 1.27 mg/dL (0.72-1.25); POTASSIUM 3.8 mmol/L (3.5-5.1)
--- NOTE | 2018-05-26 07:40 | NUR ---
Rcvd patient in report this am. Patient is asleep in recliner at this time. No s/s of distress noted
[2018-05-26 08:06] VITALS: BP 108/66
[2018-05-26] MEDS ORDERED: FUROSEMIDE INJ 10 MG/ML 2 ML VIAL IV ONE (08:15)
[2018-05-26] MEDS: FUROSEMIDE INJ 10 MG/ML 2 ML VIAL IV SCH (08:36)
[2018-05-26] MEDS: FAMOTIDINE 20 MG/2 ML VIAL IV SCH (08:36)
[2018-05-26] MEDS: LIDOCAINE 5% PATCH TP SCH (08:36)
[2018-05-26] MEDS: MUPIROCIN 2% OINT 22 GM TUBE TOP SCH (09:09)
--- NOTE | 2018-05-26 09:13 | Progress Note ---
DATE: CARDIOLOGY PROGRESS NOTE SUBJECTIVE: Patient seen seated at bedside, feeling overall better. Had some loose stools with his clear liquid diet. OBJECTIVE: VITAL SIGNS: Temperature is 96.7, heart rate is 56, respirations are 20, blood pressure is 108/66, oxygen saturation is 93% on nasal cannula. GENERAL: Patient appears in no apparent distress, alert and oriented x3. NECK: No JVD. CARDIOVASCULAR: He is regular rate and rhythm. No murmurs. LUNGS: Clear to auscultation. EXTREMITIES: 2+ pitting edema. ABDOMEN: Soft, nontender, distended. MEDICATIONS: Reviewed. LABORATORY DATA: Reviewed. Hemoglobin 12.6, creatinine 1.27. IMPRESSION: 1. Small-bowel obstruction. 2. Coronary artery disease, status post coronary bypass graft surgery. 3. Symptomatic bradycardia, status post permanent pacemaker placement. 4. Mitral valve disease, status post prior prosthetic aortic valve. 5. Peripheral edema. RECOMMENDATIONS: Please stop intravenous fluids. Please increase Lasix to 40 mg IV q.12h. for adequate diuresis. Continue to monitor his sodium levels as it was 130. Would like to monitor the patient one more day and discharge tomorrow. Thank you for the consultation. Will continue to follow. Job#: [id number]
[2018-05-26 09:15] VITALS: BP 108/66
--- NOTE | 2018-05-26 10:44 | NUR ---
Patient is AAOx3. Patient lung tsai clear to auscultation. Bowel sounds present x4. 3+ pitting edema noted to BLE. Patient ambulates on his own. NO c/o pain at this time. Patient tolerated his regular food this am. No s/s of distress noted. No diarrhea noted.
--- NOTE | 2018-05-26 10:47 | NUR ---
Received order for rollator and home health. CM spoke with pt at bedside regarding orders. Informed pt Dr. Chatterjee recommending [facility]. Pt is agreeable. Choice letter signed and placed in chart. Copy to pt. Pt ok with any company that takes his insurance for rollator. Cm called [facility] to verify they are able to take traditional MCR. Spoke with Mervat who confirmed they do. Choice letter signed and placed in chart. Copy to pt Informed pt they may not be able to deliver rollator today, but CM will try to expedite. Pt acknowledged. Pt has cane at bedside. Stated he can use his cane and will need rollator for longer distances and that they can deliver to his house. IMM letter delivered and explained to pt. He verbalized understanding. Signed copy in chart. Copy to pt. Referral for home health faxed to [facility] [address], [place] [address] P [phone] / F [phone] Informed liaison Callie Ramirez that pt will be discharging today. She will stop by to see pt. Referral for rollator faxed to [facility] [address] [place] [address] P [phone] / F [phone] Informed them that pt is discharging today.
[2018-05-26 12:00] VITALS: BP 102/56
--- NOTE | 2018-05-26 12:19 | NUR ---
Patient discharged from facility to home. Patient assisted out via staff and wheelchair. Reviewed all discharge paperwork, follow up appts and no RX's needed.
== END 2018-05-26 12:19 | disposition home health service (06) | DRG 389 ==
LOC: ER 00:56 → ERHOLD 06:02 → MED/SURG 07:07
PROVIDERS: ADMIT Internal Medicine; ATTEND Internal Medicine
PROC: 4B02XSZ Measurement of Cardiac Pacemaker, External Approach (ICD-10-PCS; principal; 2018-05-19)
DX: K56.51 Intestinal adhesions [bands], with partial obstruction (principal); E87.1 Hypo-osmolality and hyponatremia; K46.9 Unspecified abdominal hernia without obstruction or gangrene; I10 Essential (primary) hypertension; Z79.01 Long term (current) use of anticoagulants; Z95.2 Presence of prosthetic heart valve; I25.10 Atherosclerotic heart disease of native coronary artery without angina pectoris; Z95.1 Presence of aortocoronary bypass graft; I05.9 Rheumatic mitral valve disease, unspecified; E78.5 Hyperlipidemia, unspecified; J44.9 Chronic obstructive pulmonary disease, unspecified; R00.1 Bradycardia, unspecified; Z95.0 Presence of cardiac pacemaker
CPT/HCPCS: 36415; 71045; 74018; 74019; 74177; 80048; 80053; 81001; 82150; 83690; 83735; 83880; 84443; 85025; 85610; 85730; 87040; 93005; 96360; 96365; 96374; 99284; J1650; J1940; J1956; J2270; J2405; J3480; J7030; Q9967